=== PATIENT | female | born 1975 | race Caucasian/White ===

== ENCOUNTER 2023-09-06 11:22 | Outpatient (REF) | payer OTHER, SELFPAY ==
[2023-09-06 14:19] LABS: MANUAL DIFF FLAG NO
[2023-09-06 14:23] LABS: Basophils Absolute Auto 0.1 X10*3/uL (0.0-0.2); Basophils Percent Auto 0.9 % (0-2); Eosinophils Absolute Auto 0.4 X10*3/uL (0.0-0.4); Eosinophils Percent Auto 5.8 % (0-4); Hematocrit 41.2 % (37.0-47.0); Hemoglobin 14.1 g/dl (12.0-16.0); Imm Gran Abs Auto 0.03 X10*3/uL (0.00-0.03); Imm Gran Pct Auto 0.5 % (0.0-0.4); Lymphocytes Percent Auto 31.9 % (20-40); Mean Corpuscular HGB Conc 34.2 g/dl (31.0-35.0); Mean Corpuscular Hemoglobin 34.5 pg (27.0-33.0); Mean Corpuscular Volume 100.7 fL (80.0-98.0); Mean Platelet Volume 10.9 fL (9.4-12.3); Monocytes Absolute Auto 0.9 X10*3/uL (0.1-1.2); Monocytes Percent Auto 14.4 % (2-11); Neutrophils Percent Auto 46.5 % (45-73); Platelet Count 207 X10*3/uL (160-400); Red Blood Count 4.09 X10*6/uL (4.20-5.50); Red Cell Distribution Width 13.4 % (11.0-16.0); White Blood Count 6.4 X10*3/uL (4.8-10.8)
[2023-09-06 15:20] LABS: Alanine Aminotransferase 194 U/L (0-31); Albumin Level 4.7 g/dL (3.5-5.0); Alkaline Phosphatase 92 U/L (39-117); Anion Gap 17 (12-20); Aspartate Amino Transferase 212 U/L (5-31); Bilirubin Direct 0.2 mg/dL (0.0-0.5); Bilirubin Total 0.4 mg/dL (0.0-1.0); Blood Urea Nitrogen 8 mg/dL (9-16); Carbon Dioxide 23 mmol/L (22-29); Chloride 104 mmol/L (96-108); Cholesterol 210 mg/dL (<200); Estimated Glomerular Filt Rate > 60; Glucose Random 60 mg/dL (60-115); HDL Cholesterol 109 mg/dL (>40); LDL Cholesterol Calculated 87 mg/dL (<100); Potassium 3.8 mmol/L (3.3-5.1); Sodium 140 mmol/L (135-145); Total Protein 7.8 g/dL (6.5-8.0); Triglycerides 71 mg/dL (<150)
== END 2023-09-06 11:23 | disposition home or self-care (01) ==
LOC: HO.CHCLDS 11:22
PROVIDERS: Visit Provider Student in an Organized Health Care Education/Training Program
DX: F14.10 Cocaine abuse, uncomplicated (principal); F10.10 Alcohol abuse, uncomplicated
CPT/HCPCS: 36415; 80048; 80061; 80076; 85025

== ENCOUNTER 2023-11-28 13:47 | Outpatient (AMB) | payer OTHER, SELFPAY ==
--- NOTE | 2023-11-28 13:48 | MHC.OFFVIS ---
Vital Signs 11/28/23 13:56 Height 5 ft 2 in Weight 152 lb BMI 27.8 Pulse 75 Pulse Source Pulse Oximeter Pulse Oximetry (%) 95 Intake Visit Reasons: Ref.SRIRAMC,Chronic Hep-C. Allergies naproxen [From Naprosyn] Allergy (Unknown, Verified 11/28/23 13:57) SWELLING ALL OVER HPI HPI Ref.JERROD,Chronic Hep-C.: Details: He has Hepatitis C reported. He is interested in treatment. [facility] Medical History Hepatitis C Review of Systems Const All systems reviewed & are unremarkable except as noted in HPI and below Physical Exam Vital Signs: Last Vital Signs Pulse 75 11/28/23 13:56 Pulse Ox 95 11/28/23 13:56 BMI result Body Mass Index 27.8 Const General: cooperative Orientation/consciousness: patient oriented x3 HEENT Head: Yes normal to inspection Mouth: Normal oral and palatal mucosa present Eyes General: appearance normal, both eyes and all related structures Pupils: Equal, round and reactive pupils present Resp Effort & Inspection: normal respiratory effort Cardio Rate: regular rate Rhythm: regular rhythm GI Palpation (GI): Soft to palpation and nontender General: Yes no CVA tenderness Back/Spine/Pelvis Back: no CVA tenderness Skin General skin exam: no rashes or lesions noted Neuro General: patient oriented x3 Cranial nerves: Yes CN's II-XII intact bilaterally and Yes Equal, round and reactive pupils present Extrem General: Yes normal to inspection Psych Appearance: grossly normal Assessment & Plan Assessment & Plan (1) Hepatitis C: Comment: He is interested in treatment. Code(s): B19.20 - Unspecified viral hepatitis C without hepatic coma Category: Medical Plan: Would check viral load Treat Hepatitis C. Orders: Orders Complete Blood Count Auto Diff 11/28/23 B19.20 - Unspecified viral hepatitis C without hepatic coma Hepatitis C Antibody 11/28/23 B19.20 - Unspecified viral hepatitis C without hepatic coma Hepatitis B Surface Antigen 11/28/23 B19.20 - Unspecified viral hepatitis C without hepatic coma Hepatitis A IgG 11/28/23 B19.20 - Unspecified viral hepatitis C without hepatic coma Basic Metabolic Panel 11/28/23 B19.20 - Unspecified viral hepatitis C without hepatic coma Liver Fibrosis Pnl 11/28/23 B19.20 - Unspecified viral hepatitis C without hepatic coma Liver Panel 11/28/23 B19.20 - Unspecified viral hepatitis C without hepatic coma Hepatitis B Core Antibody 11/28/23 B19.20 - Unspecified viral hepatitis C without hepatic coma Hepatitis B Surface Antibody 11/28/23 B19.20 - Unspecified viral hepatitis C without hepatic coma Prothrombin Time INR 11/28/23 B19.20 - Unspecified viral hepatitis C without hepatic coma HIV Ab/Ag 11/28/23 B19.20 - Unspecified viral hepatitis C without hepatic coma Hepatitis C Viral Load 11/28/23 B19.20 - Unspecified viral hepatitis C without hepatic coma Coding Level of Care Code New Pt Level 3 (86457) Diagnoses Hepatitis C B19.20
[2023-11-28 13:56] VITALS: PULSE 75; O2SAT 95; BMI 27.8
== END 2023-11-28 14:38 | disposition home or self-care (01) ==
PROVIDERS: PCP Student in an Organized Health Care Education/Training Program; Visit Provider Internal Medicine
DX: B19.20 Unspecified viral hepatitis C without hepatic coma (principal)
CPT/HCPCS: 99203

== ENCOUNTER 2023-11-28 13:47 | Outpatient (REF) | payer OTHER, SELFPAY ==
[2023-11-28 14:55] LABS: MANUAL DIFF FLAG NO
[2023-11-28 15:23] LABS: Basophils Absolute Auto 0.1 X10*3/uL (0.0-0.2); Basophils Percent Auto 1.1 % (0-2); Eosinophils Absolute Auto 0.4 X10*3/uL (0.0-0.4); Eosinophils Percent Auto 7.1 % (0-4); Hematocrit 41.1 % (37.0-47.0); Hemoglobin 13.6 g/dl (12.0-16.0); Imm Gran Abs Auto 0.03 X10*3/uL (0.00-0.03); Imm Gran Pct Auto 0.5 % (0.0-0.4); Lymphocytes Absolute Auto 1.8 X10*3/uL (1.2-4.9); Lymphocytes Percent Auto 33.5 % (20-40); Mean Corpuscular HGB Conc 33.1 g/dl (31.0-35.0); Mean Corpuscular Hemoglobin 34.2 pg (27.0-33.0); Mean Corpuscular Volume 103.3 fL (80.0-98.0); Monocytes Absolute Auto 0.6 X10*3/uL (0.1-1.2); Monocytes Percent Auto 10.6 % (2-11); Neutrophils Absolute Auto 2.6 x10*3/uL (2.0-8.3); Neutrophils Percent Auto 47.2 % (45-73); Red Blood Count 3.98 X10*6/uL (4.20-5.50); Red Cell Distribution Width 13.6 % (11.0-16.0); White Blood Count 5.5 X10*3/uL (4.8-10.8)
[2023-11-28 15:29] LABS: INTERNATIONAL NORM RATIO 0.9 (0.9-1.1); Prothrombin Time 11.1 SEC (11.1-13.3)
[2023-11-28 15:49] LABS: Mean Platelet Volume 10.7 fL (9.4-12.3); Platelet Count 140 X10*3/uL (160-400)
[2023-11-28 15:59] LABS: Alanine Aminotransferase 183 U/L (0-31); Albumin Level 4.4 g/dL (3.5-5.0); Alkaline Phosphatase 82 U/L (39-117); Anion Gap 13 (12-20); Aspartate Amino Transferase 206 U/L (5-31); Bilirubin Direct 0.2 mg/dL (0.0-0.5); Bilirubin Total 0.4 mg/dL (0.0-1.0); Blood Urea Nitrogen 7 mg/dL (9-16); Calcium 9.1 mg/dL (8.4-10.2); Carbon Dioxide 26 mmol/L (22-29); Chloride 103 mmol/L (96-108); Estimated Glomerular Filt Rate > 60; Glucose Random 66 mg/dL (60-115); Potassium 4.1 mmol/L (3.3-5.1); Sodium 138 mmol/L (135-145); Total Protein 7.4 g/dL (6.5-8.0)
[2023-11-29 04:08] LABS: Hepatitis A Antibody IgG Nonreactive (Nonreactive); ~Hepatitis A Antibody IgG 0.29 S/CO (0.00-0.99)
[2023-11-29 04:13] LABS: HBS Num1 12.54 mIU/mL (0-7.99); HBc Num1 0.04 S/CO (0.00-0.79); HIV AB/AG Nonreactive (Nonreactive); HIV Num 1 0.05 S/CO (0.00-0.99); Hepatitis B Core Antibody Nonreactive (Nonreactive); Hepatitis B Surface Antigen Negative (Negative); ~HepC Num1 16.77 S/CO (0.00-0.79); ~Hepatitis B Surface Antibody REACTIVE (Nonreactive); ~Hepatitis C Antibody Reactive (Nonreactive)
[2023-11-30 14:28] LABS: HCV Log PCR 6.42 Log IU/mL (NOT DETECTED); HepC Viral Load 2630000 IU/mL (NOT DETECTED)
[2023-12-15 19:24] LABS: FIB-ALT 145 U/L (6-29); FIB-Alpha-2-Macroglobulin 130 mg/dL (106-279); FIB-Apolipoprotein A1 250 mg/dL (101-198); FIB-GGT 243 U/L (3-55); FIB-Haptoglobin 132 mg/dL (43-212); FIB-Total Bilirubin 0.3 mg/dL (0.2-1.2); Liver Fibrosis Score 0.04; Liver Fibrosis Stage F0; Nec Inflam Act Grade A3; Nec Inflam Act Score 0.62
== END 2023-11-28 13:48 | disposition home or self-care (01) ==
LOC: HO.LAB 13:47
PROVIDERS: PCP Student in an Organized Health Care Education/Training Program; Visit Provider Internal Medicine
DX: B18.2 Chronic viral hepatitis C (principal)
CPT/HCPCS: 36415; 80048; 80076; 81596; 85025; 85610; 86704; 86706; 86708; 86803; 87340; 87389; 87522; 99202

== ENCOUNTER 2024-05-19 14:40 | Outpatient (REF) | payer OTHER, SELFPAY ==
[2024-05-19 18:31] LABS: MANUAL DIFF FLAG NO
[2024-05-19 18:39] LABS: Basophils Absolute Auto 0.1 X10*3/uL (0.0-0.2); Eosinophils Absolute Auto 0.2 X10*3/uL (0.0-0.4); Eosinophils Percent Auto 2.9 % (0-4); Hematocrit 41.1 % (37.0-47.0); Hemoglobin 13.9 g/dl (12.0-16.0); Imm Gran Abs Auto 0.06 X10*3/uL (0.00-0.03); Imm Gran Pct Auto 0.7 % (0.0-0.4); Lymphocytes Absolute Auto 1.6 X10*3/uL (1.2-4.9); Lymphocytes Percent Auto 19.5 % (20-40); Mean Corpuscular HGB Conc 33.8 g/dl (31.0-35.0); Mean Corpuscular Hemoglobin 34.8 pg (27.0-33.0); Mean Platelet Volume 10.8 fL (9.4-12.3); Monocytes Percent Auto 11.7 % (2-11); Neutrophils Absolute Auto 5.3 x10*3/uL (2.0-8.3); Neutrophils Percent Auto 64.2 % (45-73); Platelet Count 177 X10*3/uL (160-400); Red Blood Count 3.99 X10*6/uL (4.20-5.50); Red Cell Distribution Width 12.7 % (11.0-16.0); White Blood Count 8.3 X10*3/uL (4.8-10.8)
[2024-05-19 18:41] LABS: INTERNATIONAL NORM RATIO 0.8 (0.9-1.1); Prothrombin Time 9.6 SEC (10.9-12.4)
[2024-05-19 18:50] LABS: Alanine Aminotransferase 168 U/L (0-31); Albumin Level 4.4 g/dL (3.5-5.0); Alkaline Phosphatase 80 U/L (39-117); Aspartate Amino Transferase 208 U/L (5-31); Bilirubin Direct < 0.2 mg/dL (0.0-0.5); Bilirubin Total 0.2 mg/dL (0.0-1.0); Estimated Glomerular Filt Rate > 60; Total Protein 7.3 g/dL (6.5-8.0)
[2024-05-20 08:15] LABS: HIV AB/AG Nonreactive (Nonreactive); HIV Num 1 0.06 S/CO (0.00-0.99)
[2024-05-20 15:38] LABS: HCV Log PCR 6.77 Log IU/mL (NOT DETECTED); HepC Viral Load 5870000 IU/mL (NOT DETECTED)
[2024-05-27 16:44] LABS: Hepatitis C Genotype 3
== END 2024-05-19 14:41 | disposition home or self-care (01) ==
LOC: HO.CHCLDS 14:40
PROVIDERS: Visit Provider Student in an Organized Health Care Education/Training Program
DX: B18.2 Chronic viral hepatitis C (principal)
CPT/HCPCS: 36415; 80076; 82565; 85025; 85610; 87389; 87522; 87902

== ENCOUNTER 2024-11-20 11:41 | Outpatient (REF) | payer OTHER, SELFPAY ==
--- OUTSIDE RECORDS SUMMARY | 2024-11-20 11:57 | XMS_ITS | Encounter Summary ---
Author Organization [employer] Address [address] [place] [address] 7 [place] [address] Care Team Providers Care Hospice Clinical Marketer Name Role Phone Terrie Humphries MD Primary Care Provider [phone] Reason for Visit * Reason Comments Med Refill Encounter Details Date Type Department Care Team ([facility] Contact Info) Description 07/27/2022 Refill [facility] [address] [place] [address] Terrie Humphries MD [address] [place] [address] Social History Tobacco Use Types Packs/Day Years Used Date Smoking Tobacco: Every Day Cigarettes 0.5 30 Smokeless Tobacco: Never Alcohol Use Standard Drinks/Week Comments Yes 7 (1 standard drink = 0.6 oz pur e alcohol) Comments Unknown Sex and Gender Information Value Date Recorded Sex Assigned at Female 04/24/2022 10:17 AM EDT Legal Sex Female 10:17 AM EDT Gender Identity Female 04/24/2022 10:17 AM EDT Sexual Orientation Bisexual 04/24/2022 10 :17 AM EDT COVID-19 Exposure Response Date Recorded In the last 10 days, have yo u been in contact with someone who was confirmed or suspected to have Coronavirus/COVID-19? No / Unsure 07/07/2022 3:36 PM EST documented as of this encounter Plan of Treatment Not on file documented as of this encounter Visit Diagnoses Not on filedocumented in this encounter Care Teams Hospice Clinical Marketer Relationship Specialty Start Date End Date Terrie Humphries MD [address] [place] [address], [place] [address] PCP - General Family Medicine 02/17/20 documented as of this encounter
[2024-11-20 14:41] LABS: Alanine Aminotransferase 30 U/L (0-31); Albumin Level 4.1 g/dL (3.5-5.0); Alkaline Phosphatase 86 U/L (39-117); Anion Gap 11 (12-20); Aspartate Amino Transferase 51 U/L (5-31); Bilirubin Direct 0.2 mg/dL (0.0-0.5); Bilirubin Total 0.4 mg/dL (0.0-1.0); Blood Urea Nitrogen 9 mg/dL (9-16); Calcium 9.2 mg/dL (8.4-10.2); Carbon Dioxide 29 mmol/L (22-29); Chloride 102 mmol/L (96-108); Cholesterol 201 mg/dL (<200); Estimated Glomerular Filt Rate > 60; Glucose Random 98 mg/dL (60-115); HDL Cholesterol 94 mg/dL (>40); LDL Cholesterol Calculated 91 mg/dL (<100); Potassium 4.2 mmol/L (3.3-5.1); Sodium 138 mmol/L (135-145); Total Protein 6.7 g/dL (6.5-8.0); Triglycerides 81 mg/dL (<150)
== END 2024-11-20 11:42 | disposition home or self-care (01) ==
LOC: HO.CHCLDS 11:41
PROVIDERS: Visit Provider Student in an Organized Health Care Education/Training Program
DX: F10.10 Alcohol abuse, uncomplicated (principal)
CPT/HCPCS: 36415; 80048; 80061; 80076

== ENCOUNTER 2025-02-18 12:13 | Outpatient (AMB) | payer OTHER, SELFPAY ==
--- NOTE | 2025-02-18 12:26 | A.OFFVIS_ITS ---
Vital Signs 02/18/25 12:29 Height 5 ft 2.5 in Weight 168 lb BMI 30.2 BP 132/83 Blood Pressure Location Lt brachial Position Sitting Pulse 85 Pulse Oximetry (%) 98 Oxygen Delivery Method Room Air Intake Visit Reasons: Colonoscopy Screening Intake Note: Patient new consult for 1st pre Colonoscopy screening. Patient cc: vomit yesterday from no where, she is finishing her HCV treatment, cough a lot of flame, strong smell on her stool with soft stool. Border Inspector Required: No Accompanied by: Self / Same As Patient Allergies naproxen (From Naprosyn) Allergy (Unknown, Verified 02/18/25 12:26) SWELLING ALL OVER Medication List - Last Reconciled 02/18/25 by Shae De Santiago CNP acamprosate 666 mg PO QAM albuterol sulfate 90 mcg/actuation (Ventolin HFA) 2 puffs inhalation Q6H PRN clonidine 1 patch transdermal QWEEK fluticasone propion-salmeterol 115-21 mcg/actuation (Advair HFA) 2 puffs inhalation BID fluvoxamine 100 mg PO BID methadone 110 mg PO DAILY omeprazole 20 mg PO DAILY quetiapine 300 mg PO DAILY HPI HPI Colonoscopy Screening: Details: Patient is a 49-year-old female with PMH of history of hepatitis-C ? Treatment and asthma. Referred by PCP for pre colonoscopy screening Patient presents for pre-colonoscopy screening and has noted gastrointestinal changes over the last few years. Stool consistency shifted approximately three years ago from type 4 (formed) to type 6 (soft or mushy), accompanied by a strong, unusual odor. Recently, stool has intermittently returned to type 4 but remains predominantly type 6. Occasional streaks of blood are noted with wiping, attributed to known hemorrhoids, which have been present for several years. Patient experiences hemorrhoid flares with straining during bowel movements. No significant abdominal pain, nausea, vomiting, or changes in appetite recently, aside from one episode of vomiting yesterday without preceding nausea or relation to food intake. History of severe reflux managed on long-term omeprazole for over 15 years. Patient denies recent fever, weight loss, or difficulty swallowing. Reports bloating, and notes alcohol consumption (six beers daily for 9 years). 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 Past hepatitis C treatment completed a few months ago but awaits follow-up blood work. No personal history of malignancy but significant family history of cancer (type unspecified). Social hx: -Diet: Patient reports eating vegetable-heavy meals; occasional rice at night; rapid food intake. Denies regular junk food consumption. -Alcohol/Tobacco/Drug Use: Daily alcohol intake (6 beers for 9 years); tobacco ~1/3 pack/day; cocaine (1x/week via inhalation); occasional marijuana use. -denies significant cardiopulmonary history -tolerated anesthesia in the past without difficulty. [facility] Medical History (Updated 02/18/25 @ 16:13 by Shae De Santiago CNP) Alcohol dependence Acid reflux Change in stool Colon cancer screening Hepatitis C Surgical History (Updated 02/18/25 @ 12:31 by Zaira Dias) History of surgical amputation of finger of right hand Social History (Updated 02/18/25 @ 12:33 by Zaira Dias) Household Members: Family Alcohol intake: current Alcohol intake frequency: 3 or more drinks per day Alcohol type: beer Patient Tobacco Use Status: Current everyday Tobacco user Tobacco use type: Cigarette Substance Use Type: Crack/Cocaine Review of Systems Const Reports as per HPI ENT Reports as per HPI Card Reports as per HPI Resp Reports as per HPI GI Reports as per HPI Reports as per HPI Physical Exam Vital Signs: Last Vital Signs Pulse 85 02/18/25 12:29 BP 132/83 02/18/25 12:29 Pulse Ox 98 02/18/25 12:29 Oxygen Delivery Method Room Air 02/18/25 12:29 BMI result Body Mass Index 30.2 Const General: healthy appearing, no acute distress and well developed Nutritional Appearance: average body habitus Orientation/consciousness: patient oriented x3 HEENT Head: Yes normal to inspection, Yes normocephalic and Yes atraumatic Face and sinus: Yes normal facial exam Eyes General: appearance normal, both eyes and all related structures Neck Neck: Yes normal visual inspection Resp Effort & Inspection: normal respiratory effort, able to speak in complete sentences, no tracheal deviation and symmetric chest movement Cardio Jugular venous distension: no JVD GI Inspection: Yes normal to inspection, No distended and Yes obesity Palpation (GI): Soft to palpation, not firm, nontender and No hepatosplenomegaly present Auscultation: normal bowel sounds Neuro General: patient oriented x3 Gait exam (Neuro): Normal gait present Psych Appearance: grossly normal Mental Status: mental status grossly normal Speech and movement: Normal speech and movement present Affect: normal affect Attitude: cooperative Thought process: Normal thought process present Thought content: Normal thought content present Insight: Good insight present (Psych) Judgement: Good judgement present (Psych) Assessment & Plan Assessment & Plan (1) Colon cancer screening: Code(s): Z12.11 - Encounter for screening for malignant neoplasm of colon Category: Medical Plan: Due for index screening colonoscopy. Medications: -prescriptions for laxative tablets and MiraLax sent to pharmacy; instructions for Gatorade purchase and clear liquid diet given.. Patient educated on scheduling process, procedure preparation, including avoiding certain foods and ensuring clear liquid intake Advised on necessity for ride post-procedure due to sedation. (2) Change in stool: Code(s): R19.5 - Other fecal abnormalities Category: Medical Plan: Chronic stool inconsistency with odor and intermittent blood, lasting for three years. Additional Testing: Labs for inflammation markers, thyroid function, celiac markers and stool testing. Medication Management: Continue omeprazole, assess need for dose adjustment post-upper endoscopy if findings suggest reflux-related esophageal damage. Lifestyle Recommendations: Increase dietary fiber intake (fruits, vegetables). Minimize with goal of cessation to alcohol use, avoid spicy or fatty foods, acidic beverages, and overeating; eat smaller meals and remain upright after eating. Inform patient to pace food consumption to aid digestion. Follow-Up: Results of labs and stool tests; colonoscopy and upper endoscopy scheduled for colorectal cancer screening and assessment of reflux. (3) Acid reflux: Code(s): K21.9 - Gastro-esophageal reflux disease without esophagitis Category: Medical Qualifiers: Esophagitis presence: esophagitis presence not specified Qualified Code(s): K21.9 - Gastro-esophageal reflux disease without esophagitis Plan: 15+ years of reflux controlled with omeprazole; history of regurgitation episodes. Additional Testing: Upper endoscopy for esophagus and stomach evaluation during colonoscopy. Medication Management: Continue omeprazole (20 mg QD). Lifestyle Recommendations: Avoid triggers like alcohol, acidic, fried, and fatty food. Encourage hydration with water. Rn Clinical Documentation Specialist on dietary practices (clear liquids before procedures). (4) Hepatitis C: Comment: Treatment managed by outside provider Code(s): B19.20 - Unspecified viral hepatitis C without hepatic coma Category: Medical Qualifiers: Hepatic coma status: without hepatic coma Viral hepatitis chronicity: chronic Qualified Code(s): B18.2 - Chronic viral hepatitis C Plan: Completed antiviral therapy, follow-up SVR pending. Additional Testing: Repeat hepatitis C viral load per managing provider; LFTs as part of routine monitoring. Medication Management: None indicated at this time; defer to managing provider. Lifestyle Recommendations: Avoid hepatotoxins (alcohol, NSAIDs); maintain follow-up with hepatitis C provider. Follow-Up: Ensure blood work completed; coordinate with outside provider for ongoing management. (5) Alcohol dependence: Code(s): F10.20 - Alcohol dependence, uncomplicated Category: Medical Qualifiers: Substance use status: uncomplicated Qualified Code(s): F10.20 - Alcohol dependence, uncomplicated Plan: Extended daily use of alcohol (~6 beers/day for ~9 years); patient actively considering reduction. Additional Testing: Evaluate liver function with ultrasound; check for gallstones with history of bloating and vomiting. Medication Management: Reinitiate Campral once dosing confirmed to reduce alcohol cravings. Lifestyle Recommendations: Revisit alcohol cessation counseling. Encourage patient to work toward a trusting relationship with counselor. Follow-Up: Reassess counseling engagement within methadone clinic. Plan Follow-up endoscopy or sooner as needed Time: I spent a total of 50 minutes on the date of encounter which includes: Preparing to see the patient (reviewed previous documentation, test results and medical history) Performing a medically appropriate exam and/or evaluation Ordering medications, tests, and procedures Documenting clinical information in the health record Orders: Orders C Reactive Protein Today R19.5 - Other fecal abnormalities Calprotectin, Fecal Today R19.5 - Other fecal abnormalities Transglutaminase IgA Today R19.5 - Other fecal abnormalities TSH reflex Free T4 Today R19.5 - Other fecal abnormalities US abdomen complete Today B19.20 - Unspecified viral hepatitis C without hepatic coma, K21.9 - Gastro-esophageal reflux disease without esophagitis, R11.10 - Vomiting, unspecified Medications: New bisacodyl (Dulcolax (bisacodyl)) Take four tablets pre colonoscopy instructions 20 mg (4 x 5 mg) PO ONCE 4 tab s 0RF 1 day polyethylene glycol 3350 (Miralax) per colonoscopy prep instructions 238 grams PO ONCE 238 grams 0RF Coding Level of Care Code New Pt New Pt Level 4 (89906) Patient Type New Diagnoses Colon cancer screening Z12.11 Change in stool R19.5 Gastroesophageal reflux disease, unspecified whether esophagitis present K21.9 Esophagitis presence: esophagitis presence not specified Chronic hepatitis C without hepatic coma B18.2 Hepatic coma status: without hepatic coma Viral hepatitis chronicity: chronic Uncomplicated alcohol dependence F10.20 Substance use status: uncomplicated
[2025-02-18 12:29] VITALS: BP 132/83; PULSE 85; O2SAT 98; BMI 30.2
--- OUTSIDE RECORDS SUMMARY | 2025-02-18 12:55 | XMS_ITS | Encounter Summary ---
Author Organization [employer] Address [address] [place] [address] Care Team Providers Care Milk Of Lime Slaker Name Role Phone Terrie Humphries MD Primary Care Provider [phone] Encounter Details Date Type Department Care Team (Late Contact Info) Description 06/15/2022 Orders Only [facility] MED & PEDS [address] [place], [place] [phone] Terrie Humphries MD [address] [place], [place] [phone] Social History Tobacco Use Types Packs/Day Years Used Date Smoking Tobacco: Never Assessed Comments Unknown Sex and Gender Information Value Date Recorded Sex Assigned at Female 04/24/2022 10:17 AM EDT Legal Sex Female 10:17 AM EDT Gender Identity Female 04/24/2022 10:17 AM EDT Sexual Orientation Bisexual 04/24/2022 10 :17 AM EDT documented as of this encounter Plan of Treatment Upcoming Encounters Date Type Department Care Team (Late Contact Info) Description 03/31/2025 11:30 AM EDT Office Visit [facility] [address] [place], [place] [phone] Karen Segura MD [address] [place], [place] [phone] documented as of this encounter Visit Diagnoses Not on filedocumented in this encounter Care Teams Milk Of Lime Slaker Relationship Specialty Start Date End Date Terrie Humphries MD [address] [place] [id number] PCP - General Family Medicine 02/17/20 documented as of this encounter
--- OUTSIDE RECORDS SUMMARY | 2025-02-18 12:55 | XMS_ITS | Encounter Summary ---
Author Organization [facility] Address [address] [place] [address] Encounters * [facility] [place] [facility] Several day history of intermittent chest pain. { reasonForRequest : , patientReports : , denies&quot ;:[], chiefComplaints : Chest Pain , pmh : COPD/Asthma, Severe Persistent Mental Illness (SPMI), Asthma, Cigarette Smoker, Hepatitis C, Substance Use Disorder , allergies : Naproxen , otherAllergies : , painAssessm ent : , visitOutcome : , additionalComments : Patient called by [facility] to confirm information- patient hung up, then phone went to --\n\nThis nurse also called for additional information, no answer- AC\n\nPer requestor:\nHome evaluation of patient with history of asthma, using inhalers. Has intermittent chest pain. Had slight left arm pain the other day. NO chest pain at time of call. } Sent to a call for a pt complaining of chest pain. SC8 arrives on scene, pt is alert and oriented, airway is patent. Pt complains of intermittent left side aching chest pain at rest lasting 3-5 minutes at a time x 2 days. Pt states she has been stressed more than normal. Pt denies ferraro, dizziness, current cp, sob (other than baseline sob due to asthma), n/v/abd pain, fever, or loc. Pt states she has had similar chest pain in past when stressed. Pt's father of a heart attack in his 60's. BP:129/86, P:86, RR:18, SpO2:95% RA, T:98.6; Head: unremarkable; Lung sounds: clear bilaterally; Abdomen: soft, non-tender, no distention; Back: unremarkable; Extremities: unremarkable; Skin: pink, warm, d ry; 12 lead [facility] consulted and pt is advised to follow up with PCP tomorrow. Red flags discussed. Pt has no further questions. ORAL_MEDICATION, EKG, POC_FLU_STREP, COVID_TEST Written by [facility] on 2025-01-20
--- OUTSIDE RECORDS SUMMARY | 2025-02-18 12:55 | XMS_ITS | Encounter Summary ---
Author Organization [employer] Address [address] [place] [address] Care Team Providers Care Rat Exterminator Name Role Phone Terrie Humphries MD Primary Care Provider [phone] Reason for Visit * Reason Onset Date Comments Appointment Request 02/05/2025 Encounter Details Date Type Department Care Team ([facility] Contact Info) Description 02/05/2025 Telephone [facility] MEDICINE [address] [place] [address] Terrie Humphries MD [address] [place], [place] [phone] Appointment Request Social History Tobacco Use Types Packs/Day Years Used Date Smoking Tobacco: Every Day Cigarettes 0.8 30 Smokeless Tobacco: Never Alcohol Use Standard Drinks/Week Comments Yes 7 (1 standard drink = 0.6 oz pur e alcohol) Alcohol Answer Date Recorded How often do you have a drink containing alcohol ? 4 06/12/2023 How many drinks containing a lcohol do you have on a typical day when you are drinking? 4 06/12/2023 How often do you have six or more drinks on one occasion? 4 06/12/2023 Depression Answer Date Recorded Patient Health Questionnaire-9 Score 5 11/20/2024 Patient Health Questionnaire-9 Score 5 11/20/2024 Last PHQ-9: Questionnaire Data Not on file 0 11/20/2024 Housing Stability Answer Date Recorded What is your housing situation today? I have josseline crawford 11/20/[address] you li ve. Do you have problems with any of the following? None of the above 11/20/2024 Food Insecurity Answer Date Recorded Within the past 12 months, y ou worried that your food would run out before you got money to buy more: Never True 11/20/2024 Within the past 12 months,th e food you bought just didn't last and you didn't have enough money to get more: Never True Transportation Answer Date Recorded In the past 12 months, has l ack of transportation kept you from medical appts, meetings, work or from getting things needed for daily living? No 11/20/2024 Utilities Answer Date Recorded In the past 12 months, has t he electric, gas, oil or water company threatened to shut off services in your home? No 11/20/2024 Depression Answer Date Recorded Patient Health Questionnaire-2 Score 2 11/20/2024 Internet Access Answer Date Recorded Internet Access Q1 No 11/20/2024 Internet Access Q2 I do not want or need it 10/24 Comments No Sex and Gender Information Value Date Recorded Sex Assigned at Female 04/24/2022 10:17 AM EDT Legal Sex Female 10:17 AM EDT Gender Identity Female 04/24/2022 10:17 AM EDT Sexual Orientation Bisexual 04/24/2022 10 :17 AM EDT documented as of this encounter Miscellaneous Notes * Telephone Encounter - Caesar Augustin - 02/05/2025 3:53 PM EDT TC from pt requesting to be scheduled fir a mammo gram . Order dated 11/20/24 documented in this encounter Plan of Treatment Upcoming Encounters Date Type Department Care Team (Late st Contact Info) Description 03/31/2025 11:30 AM EDT Office Visit [facility]EDS [address] [place] [address] Karen Segura MD [address] [place] [address] documented as of this encounter Visit Diagnoses Not on filedocumented in this encounter Additional Health Concerns Assessment Noted Time PHQ-9 Depression Total Score: 5 11/21/19 25 1:19 PM EDT documented as of this encounter Care Teams Rat Exterminator Relationship Specialty Start Date End Date Terrie Humphries MD [address] [place] [address] PCP - General Family Medicine 02/17/20 documented as of this encounter
--- OUTSIDE RECORDS SUMMARY | 2025-02-18 12:55 | XMS_ITS | Clinical Summary ---
Author Organization [employer] Address [address] [facility] 7t [place] [address] Care Team Providers Care Party Plan Sales Agent Name Role Phone Terrie Humphries MD Primary Care Provider [phone] Allergies Active Allergy Reactions Criticality Noted Date Comments Naproxen Swelling 11/03/2011 Medications * This document contains information received from the source organization and may not represent a complete record from that organization. triamcinolone (Kenalog) 0.5 % ointment APPLY THIN COAT TO AFFECTED AREA TWICE A DAY 2 Active [facility] Ar[facility]ritis Pain Relief 650 MG ER tablet Take 650 mg by mouth every 8 (eight) hours if needed. 2 Active methadone (Dolophine) 10 MG tablet Take 80 mg by mouth. Active albuterol 108 (90 Base) MCG/ACT inhaler Inhale 2 puffs in the morning, at noon, in the evening, and at bedtime. INHALE 2 PUFF BY INHALATION ROUTE EVERY 4 HOURS NEEDED 18 g 6 4 Active QUEtiapine (SEROquel) 25 MG tablet TAKE 1 TABLET BY MOUTH THREE TIMES A DAY 90 tablet 3 4 Active cloNIDine (Catapres) 0.1 MG tabletIndication s:Hypertension, unspecified type TAKE 1 TABLET BY MOUTH THREE TIMES A DAY 270 tablet 3 4 Active acamprosate (Campral) 333 MG EC tabletIndication s:Alcohol use disorder, severe, dependence (CMS/HCC) Take 2 tablets (666 mg) by mouth 2 times daily. Do not crush, chew, or split. 120 tablet 4 Active fluvoxaMINE (Luvox) 100 MG tablet TAKE 1 TABLET BY MOUTH TWICE A DAY 180 tablet 1 5 Active QUEtiapine (SEROquel) 300 MG tabletIndication s:Depression, unspecified depression type TAKE 1 TABLET BY MOUTH EVERY MORNING 30 tablet 3 5 Active albuterol 108 (90 Base) MCG/ACT inhaler Inhale 2 puffs every 4 (four) hours if needed for wheezing. 18 g 5 11/21/19 26 Active fluticasone-salm eterol (Advair) 115-21 MCG/ACT inhaler Inhale 2 puffs in the morning and at bedtime. Rinse mouth with water after use to reduce aftertaste and incidence of candidiasis. Do not swallow. 12 g 11 5 11/21/19 26 Active albuterol 108 (90 Base) MCG/ACT inhaler INHALE 2 PUFFS IN THE MORNING, AT NOON, IN THE EVENING, AND AT BEDTIME. INHALE 2 PUFF BY INHALATION ROUTE EVERY 4 HOURS NEEDED 18 g 5 5 Active omeprazole (PriLOSEC) [address] capsule TAKE 1 CAPSULE BY MOUTH EVERY DAY BEFORE A MEAL 90 capsule 3 5 Active Active Problems Problem Noted Date Diagnosed Date Hep C w/o coma, chronic 11/20/2024 Tobacco abuse 06/12/2023 Cocaine abuse 06/12/2023 Mild intermittent asthma 03/20/2016 Encounters Date Type Department Care Team Description 02/17/2025 Telephone [facility] [address] [place], [place] [phone] Terrie Humphries MD mammo order 02/09/2025 Telephone [facility] [address] [place], [place] [phone] Terrie Humphries MD 02/05/2025 Telephone [facility] [address] [place], [place] [phone] Liz Cat RN 02/05/2025 Orders Only [facility] [address] [place], [place] [phone] Liz Cat, JUAN CARLOS Hep C w/o coma, chronic (CMS/HCC) (Primary Dx) 02/05/2025 Telephone [facility] [address] [place] [phone] Terrie Humphries MD Appointment Request 01/23/2025 1:20 PM EDT Office Visit [facility] [address] [place] [address] Karen Segura MD Other chest pain (Primary Dx); Epidermoid cyst 01/23/2025 Travel 01/22/[address] [address] Terrie Humphries MD Nurse Triage 01/20/2025 Telephone [facility] [address] [place] [address] Terrie Humphries MD Nurse Triage 01/14/2025 Telephone [facility] [address] [place] [address] Terrie Humphries MD No Show 01/13/2025 Telephone [facility] [address] [place] [address] Terrie Humphries MD Nurse Triage 01/12/[address] [address] Liz Cat, JUAN CARLOS 01/06/2025 Refill [facility] [address] [place] [address] Terrie Humphries MD 11/24/2024 Results Follow-Up [facility] [address] [place] [address] Terrie Humphries MD Basic Metabolic Panel, Lipid Panel, Standard, Hepatic Function Panel 11/20/2024 11:00 AM EDT Office Visit [facility] [address] [place] [address] Terrie Humphries MD Acute bronchitis, unspecified organism (Primary Dx); Mild intermittent asthma without complication; Hep C w/o coma, chronic (CMS/HCC); Encounter for annual wellness visit; Encounter for screening mammogram for breast cancer; Encounter for screening for malignant neoplasm of colon; Alcohol abuse 11/20/2024 Travel from Last 3 Months Immunizations Immunization Administration Dates Next Due Hep B, adult 12/28/2005,08/23/2005,07/21/2005 Influenza injectable quadriv alent IIV4 with preservative 03/20/2016 Pneumococcal Polysaccharide PPSV23 04/10/2017 TD (adult), 2 Lf tetanus tox oid, preservative free, adsorbed 11/23/2004 Tdap 06/12/2023 Social History Tobacco Use Types Packs/Day Years Used Date Smoking Tobacco: Every Day Cigarettes 0.8 30 Smokeless Tobacco: Never Tobacco Cessation:Ready to Q uit: Not Asked; Counseling Given: Not Answered Alcohol Use Standard Drinks/Week Comments Yes 7 [...] Orientation Bisexual 04/24/2022 10 :17 AM EDT Last Filed Vital Signs Vital Sign Reading Time Taken Comments Blood Pressure 129/84 01/23/2025 2:04 PM EDT Pulse 80 01/23/2025 2:04 PM EDT Temperature 36.4 C (97.5 F) 01/23/2025 1:41 PM EDT Respiratory Rate 20 01/23/2025 1:41 PM EDT Oxygen Saturation 95% 01/23/2025 1:41 PM EDT Inhaled Oxygen Concentration - - Weight 76.7 kg (169 lb) 01/23/2025 1:41 PM EDT Height 158.8 cm (5' 2.5 ) 01/23/2025 1:41 PM EDT Body Mass Index 30.42 01/23/2025 1:41 PM EDT Plan of Treatment Upcoming Encounters Date Type Department Care Team (Late st Contact Info) Description 03/31/2025 11:30 AM EDT Office Visit [facility] [address] [place] [address] Kraen Segura MD [address] [place] [address] Health Maintenance Due Date Last Done Comments CT Colonography 1977 Colonoscopy 1977 Colorectal Cancer Screening 1977 FIT DNA/Cologuard 1977 FIT 1977 FOBT 1977 Sigmoidoscopy 1977 Alcohol/Substance Use Screening 1989 Family Planning (PISQ) 1992 Hepatitis A Vaccines (1 of 2 - Risk 2-dose series) 1996 Pap Smear 1998 Cervical Cancer Screening 2007 HPV/Cotest 2007 Mammogram 2017 Pneumococcal Vaccine: Pediatrics (0 to 5 Years) and At-Risk Patients (6 to 49) Years (2 of 2 - PCV) 04/10/2018 04/10/2017 COVID-19 Vaccine (1 - 2023-2 5 season) 2024 Influenza Vaccine (#1) 2025 03/20/2016 Depression Screening 11/20/2025 11/20/2024, 11/20/2024 Disability Screening 11/20/2025 11/20/2024 SDOH Screening 11/20/2025 11/20/2024 Tobacco Screening 11/20/2025 11/20/2024 Zoster Vaccines (1 of 2) 2027 Lipid Panel 11/20/2029 11/20/2024, 09/06/2023, 12/13/2021 DTaP/Tdap/Td Vaccines (2 - T d or Tdap) 06/12/2033 06/12/2023, 11/23/2004 RSV Patients and Patients Aged 60 years or older (1 - 1-dose 75+ series) 2052 Hepatitis B Vaccines Completed 12/28/2005, 08/23/2005, 07/21/2005 HIV Screening Completed 05/19/2024, 11/28/2023, 12/13/2021 HIB Vaccines Aged Out No longer eligi ble based on patient's age to complete this topic HPV Vaccines Aged Out No longer eligi ble based on patient's age to complete this topic IPV Vaccines Aged Out No longer eligi ble based on patient's age to complete this topic Meningococcal B Vaccine Aged Out No l onger eligible based on patient's age to complete this topic Meningococcal Vaccine Aged Out No maddie corby eligible based on patient's age to complete this topic RSV under 20 months Aged Out No longe r eligible based on patient's age to complete this topic Rotavirus Vaccines Aged Out No longer eligible based on patient's age to complete this topic Procedures Procedure Name Priority Date/Time Associated Diagnosis Comments ECG 12-LEAD Routine 01/23/2025 2:13 PM EDT Other chest pain HEPATIC FUNCTION PANEL Routine 11/20/2024 11:45 AM EDT Alcohol abuse LIPID PANEL, STANDARD Routine 11/20/2024 11:45 AM EDT Alcohol abuse BASIC METABOLIC PANEL Routine 11/20/2024 11:45 AM EDT Alcohol abuse HIV 1/2 ANTIGEN/ANTIBODY, FOURTH GENERATION W/RFL Routine 05/19/2024 2:42 PM EST from Last 3 Months or Most Recently Relevant to Health Maintenance Results * ECG 12 lead (01/23/2025 2:13 PM EDT) Karen Egan MD - 01/23/2025 2:13 PM EDT Heart rate 75 bpm. [place] 60 degrees. No Q waves. No sign of left atrial enlargement or right atrial enlargement. No ST elevation or ST depression. Normal EKG. us Karen Segura MD ECG ORDERABLES Final Resul t * (ABNORMAL) Hepatic Function Panel (11/20/2024 11:45 AM EDT) Bilirubin, Total 0.4 0.0 - 1.0 mg/dL [facility] Bilirubin, Direct 0.2 0.0 - 0.5 mg/dL [facility] Aspartate Amino Transferase 51(H) 5 - 31 U/L [facility] Alanine Aminotransferase 30 0 - 31 U/L [facility] Total Protein 6.7 6.5 - 8.0 g/dL [facility] Albumin Level 4.1 3.5 - 5.0 g/dL [facility] Alkaline Phosphatase 86 39 - 117 U/L [facility] Blood Venous blood specimen / Unknown 11/20/2024 11:45 AM EDT 11/20/2024 2:14 PM EDT us Terrie Humphries MD LAB BLOOD ORDERABLES Final Resul t [facility] [address] [place] [phone] * (ABNORMAL) Lipid Panel, Standard (11/20/2024 11:45 AM EDT) Triglycerides 81 <150 mg/dL [facility] Comment:Desirable Triglyceri de: less than 150 mg/dLBorderline High Triglyceride 150-199 mg/dLHigh Triglyceride: 200-499 mg/dLVery High Triglyceride: greater than or equal to 5OO mg/dL Cholesterol 201(H) <200 mg/dL [facility] Comment:Desirable Cholestero l: less than 200 mg/dLBorderline High Cholesterol: 200-239 mg/dLHigh Cholesterol: greater than 239 mg/dL LDL Cholesterol Calculated 91 <100 mg/dL [facility] Comment:Desirable LDL: less than 100 mg/dLNear Optimal/Above Optimal LDL: 110- 129 mg/dLBorderline High LDL: 130-159 mg/dLHigh LDL: 160-189 mg/dLVery High LDL: greater than or equal to 190 mg/dL HDL Cholesterol 94 >40 mg/dL [facility] Comment:Desirable HDL: great er than 40 mg/dL Note: This HDL assay may give artificially low results in patients with liver disease. Blood Venous blood specimen / Unknown 11/20/2024 11:45 AM EDT 11/20/2024 2:14 PM EDT us Terrie Humphries MD LAB BLOOD ORDERABLES Final Resul t [facility] [address] [place] [phone] * (ABNORMAL) Basic Metabolic Panel (11/20/2024 11:45 AM EDT) Sodium 138 135 - 145 mmol/L [facility] Potassium 4.2 3.3 - 5.1 mmol/L [facility] Chloride 102 96 - 108 mmol/L [facility] Carbon Dioxide 29 22 - 29 mmol/L [facility] Anion Gap 11(L) 12 - 20 [facility] Urea Nitrogen (BUN) 9 9 - 16 mg/dL [facility] Creatinine, Serum 0.72 0.5 - 1.4 mg/dL [facility] Estimated Glomerular Filt Rate >60 [facility] Comment:Chronic Kidney Disea se: Estimated GFR < 60 mL/min/[id number] Kidney Disease: Estimated GFR < 15 mL/min/1.73m2 Glucose 98 60 - 115 mg/dL [facility] Calcium 9.2 8.4 - 10.2 mg/dL [facility] Blood Venous blood specimen / Unknown 11/20/2024 11:45 AM EDT 11/20/2024 2:14 PM EDT Terrei Humphries MD LAB BLOOD ORDERABLES Final Resul t Performing Organization Address [facility] Co de Phone Number [facility] [address] [place] [phone] * HIV-1/2 Antigen and Antibodies, Fourth Generation, with Reflexes (05/19/2024 2:42 PM EST) [facility] HIV AB/AG Nonreactive Nonreactive [facility] Comment:HIV-1 p24 Ag and/or HIV-1/HIV-2 Ab not detected.A test result that is nonreactive does not exclude thepossibility of exposure to or infection with HIV-1 and/orHIV-2. Nonreactive results in this assay for individualswith prior exposure to HIV-1 and/or HIV-2 may be due toantigen and antibody levels that are below the limit ofdetection of this assay.The [employer] HIV Ag/Ab Combo assay result andsupplemental assay results should be interpreted inconjunction with the patient's clinical presentation,history and other laboratory results. If the results areinconsistent with clinical evidence, additional testing issuggested to confirm the result. 05/19/2024 2:42 PM EST 05/19/2024 6:27 PM EST Terrie Humphries MD LAB BLOOD ORDERABLES Final Resul t Performing Organization Address [facility] Co de Phone Number [facility] [address] [place] [phone] from Last 3 Months or Most Recently Relevant to Health Maintenance Insurance [place] [id number] [employer] < 65 [place] [id number] [place] [id number] [place] [id number] [place] [id number] Care Teams Party Plan Sales Agent Relationship Specialty Start Date End Date Terrie Humphries MD [address] [place] [phone] PCP - General Family Medicine 02/17/20
--- OUTSIDE RECORDS SUMMARY | 2025-02-18 12:55 | XMS_ITS | Encounter Summary ---
Author Organization [employer] Address [address] [facility] 7 [place] [address] Care Team Providers Care Open Source Developer Name Role Phone Terrie Humphries MD Primary Care Provider [phone] Reason for Visit * Reason Onset Date Comments Nurse Triage 09/11/2023 Encounter Details Date Type Department Care Team ([facility] Contact Info) Description 09/11/2023 Telephone [facility] [address] [place] [address] Terrie Humphries MD [address] [place] [address] Nurse Triage Social History Tobacco Use Types Packs/Day Years [...] more drinks on one occasion? 4 06/12/2023 Housing Stability Answer Date Recorded What is your housing situation today? I have josseline crawford 06/12/[address] you li ve. Do you have problems with any of the following? None of the above 06/12/2023 Food Insecurity Answer Date Recorded Within the past 12 months, y ou worried that your food would run out before you got money to buy more: Sometimes True 2022 Within the past 12 months,th e food you bought just didn't last and you didn't have enough money to get more: Sometimes True 04/12/2023 Transportation Answer Date Recorded In the past 12 months, has l ack of transportation kept you from medical appts, meetings, work or from getting things needed for daily living? No 04/12/2023 Utilities Answer Date Recorded In the past 12 months, has t he electric, gas, oil or water company threatened to shut off services in your home? 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 Pt reports 2 days ago , using a sharp knife, Pt cut , self mutilated, on left lower arm. Pt reports the area is reddened around the edges, green pus present and itchy. Pt believes there is an infection in wound. Pt didn't clean area well at time of wounding. Neg for fever. Pt requests to have provider see wound for possibleantibiotic treatment. Pt last Tdap is 06/12/23. Pt is given apt with Dr. Segura at 400pm today. Insurance is verified as active prior to booking. Pt agrees with disposition and home care reviewed. Protocol Used: Wound Infection Suspected (Adult) Protocol-Based Disposition: See in Office or Video Visit Today Video visit not offered Positive Triage Question: * Patient wants to be seen * All higher-acuity triage questions were negative Care Advice Discussed: * Wound Infection - Treatment With Warm Soaks or Local Heat * Antibiotic Ointment * Pain Medicines * Pain Medicines - Extra Notes and Warnings * Reasons To Call Back - Fever occurs - You become worse * Telephone Encounter - Tor Gar - 09/11/2023 1:50 PM EDT Symptom: Wound Infection - Caller Reports Outcome: Schedule an urgent appointment (within 1 hour) or talk to a nurse or provider soon Reason: Getting worse The caller accepted this outcome Please contact pt @ [phone] documented in this encounter Plan of Treatment Upcoming Encounters Date Type Department Care Team ([facility] st Contact Info) Description 03/31/2025 11:30 AM EDT Office Visit [facility] [address] [place] [address] Karen Segura MD [address] [place] [address] documented as of this encounter Visit Diagnoses Not on filedocumented in this encounter Care Teams Open Source Developer Relationship Specialty Start Date End Date Terrie Humphries MD [address] [place] [phone] PCP - General Family Medicine 02/17/20 documented as of this encounter
--- OUTSIDE RECORDS SUMMARY | 2025-02-18 12:55 | XMS_ITS | Continuity of Care Document ---
Author Name [employer] Address [address] [place] [phone] Organization Unknown Address [address] [place] [address] Medications No known medications Problems No known problems
--- OUTSIDE RECORDS SUMMARY | 2025-02-18 12:55 | XMS_ITS | Encounter Summary ---
Author Organization [employer] Address [address] [place] [address] 7 [place] [address] Care Team Providers Care Photoengraving Sketch Maker Name Role Phone Terrie Humphries MD Primary Care Provider [phone] Reason for Visit * Reason Onset Date Comments VNA orders 06/01/2023 Encounter Details Date Type Department Care Team ([facility] Contact Info) Description 06/01/2023 Telephone [facility] [address] [place] [address] Terrie Humphries MD [address] [place] [address] VNA orders Social History Tobacco Use Types Packs/Day Years Used Date Smoking Tobacco: Every Day Cigarettes 0.5 30 Smokeless Tobacco: Never Alcohol Use Standard Drinks/Week Comments Yes 7 (1 standard drink = 0.6 oz pur e alcohol) Housing Stability Answer Date Recorded What is your housing situation today? I have josseline crawford 04/01/[address] you li ve. Do you have problems with any of the following? Pests such as bugs, ants, or mice 04/01/2023 Food Insecurity Answer Date Recorded Within the [...] to shut off services in your home? Yes 04/01/2023 Comments Unknown Sex and Gender Information Value Date Recorded Sex Assigned at Female 04/24/2022 10:17 AM EDT Legal Sex Female 10:17 AM EDT Gender Identity Female 04/24/2022 10:17 AM EDT Sexual Orientation Bisexual 04/24/2022 10 :17 AM EDT documented as of this encounter Miscellaneous Notes * Telephone Encounter - Becka Arun - 06/01/2023 12:37 PM EST Tc from michelle with [facility] requesting a call in regards to VNA orders. Please contact Michelle at [phone] documented in this encounter Plan of Treatment Upcoming Encounters Date Type Department Care Team (Late st Contact Info) Description 03/31/2025 11:30 AM EDT Office Visit [facility] [address] [place] [address] Karen Segura MD [address] [place] [address] documented as of this encounter Visit Diagnoses Not on filedocumented in this encounter Care Teams Photoengraving Sketch Maker Relationship Specialty Start Date End Date Terrie Humphries MD [address] [place] [phone] PCP - General Family Medicine 02/17/20 documented as of this encounter
--- OUTSIDE RECORDS SUMMARY | 2025-02-18 12:55 | XMS_ITS | Encounter Summary ---
Author Organization [employer] Address [address] [facility] 7t [place] [address] Care Team Providers Care Collections Specialist Name Role Phone Terrie Humphries MD Primary Care Provider [phone] Reason for Visit * Reason Onset Date Comments Appointment Request 05/08/2023 Encounter Details Date Type Department Care Team ([facility] Contact Info) Description 05/08/2023 Telephone [facility] [address] [place] [address] Terrie Humphries MD [address] [place], [place] [phone] Appointment Request Social History Tobacco Use Types [...] encounter Miscellaneous Notes * Telephone Encounter - Vannessa Herrera - 05/08/2023 9:41 AM EST Tc from [facility] requesting PE appt for pt, please call [place] [phone]. documented in this encounter Plan of Treatment Upcoming Encounters Date Type Department Care Team (Late st Contact Info) Description 03/31/2025 11:30 AM EDT Office Visit [facility] [address] [place] [address] Karen Segura MD [address] [place] [address] documented as of this encounter Visit Diagnoses Not on filedocumented in this encounter Care Teams Collections Specialist Relationship Specialty Start Date End Date Terrie Humphries MD [address] [place] [phone] PCP - General Family Medicine 02/17/20 documented as of this encounter
--- OUTSIDE RECORDS SUMMARY | 2025-02-18 12:55 | XMS_ITS | Encounter Summary ---
Author Organization [employer] Address [address] [place] [address] Care Team Providers Care Cinder Pit Crane Operator Name Role Phone Terrie Humphries MD Primary Care Provider [phone] Encounter Details Date Type Department Care Team (Late Contact Info) Description 03/12/2023 Orders Only [facility] [address] [place], [place] [phone] Terrie Humphries MD [address] [place], [place] [phone] Social History Tobacco Use Types Packs/Day Years [...] Description 03/31/2025 11:30 AM EDT Office Visit [facility] MED & PEDS [address] [place], [place] [phone] Karen Segura MD [address] [place], [place] [phone] documented as of this encounter Procedures Procedure Name Priority Date/Time Associated Diagnosis Comments HEPATITIS C ANTIBODY Routine 11/28/2023 2:54 PM EDT LIVER FIBROSIS, FIBROTEST ACTITEST PANEL Routine 11/28/2023 2:54 PM EDT HEPATITIS C VIRAL RNA, QUANTITATIVE, REAL-TIME PCR Routine 11/28/2023 2:54 PM EDT CBC WITH AUTO DIFFERENTIAL Routine 11/28/2023 2:54 PM EDT HEPATITIS A ANTIBODY, TOTAL Routine 11/28/2023 2:54 PM EDT HEPATITIS B SURFACE ANTIGEN, EIA Routine 11/28/2023 2:54 PM EDT HEPATITIS B CORE AB TOTAL Routine 11/28/2023 2:54 PM EDT HIV 1/2 ANTIGEN/ANTIBODY, FOURTH GENERATION W/RFL Routine 11/28/2023 2:54 PM EDT HEPATITIS B SURFACE ANTIBODY, QUALITATIVE Routine 11/28/2023 2:54 PM EDT PROTHROMBIN TIME-INR Routine 11/28/2023 2:54 PM EDT HEPATIC FUNCTION PANEL Routine 11/28/2023 2:54 PM EDT BASIC METABOLIC PANEL Routine 11/28/2023 2:54 PM EDT documented in this encounter Results * (ABNORMAL) Liver Fibrosis (HCV), FibroTest-ActiTest Panel (11/28/2023 2:54 PM EDT) Liver Fibrosis Score 0.04 [facility] Liver Fibrosis Stage F0 [facility] Liver Fibrosis Interpretation SEE NOTE [facility] Comment:no fibrosisFibro Fátima t Score (f) Metavir Score f>=0 and f<=0.21 : F0 (no fibrosis)f>0.21 and f<=0.27 : F0-F1 (no fibrosis)f>0.27 and f<=0.31 : F1 (minimal fibrosis)f>0.31 and f<=0.48 : F1-F2 (minimal fibrosis)f>0.48 and f<=0.58 : F2 (moderate fibrosis)f>0.58 and f<=0.72 : F3 (advanced fibrosis)f>0.72 and f<=0.74 : F3-F4 (advanced fibrosis)f>0.74 and f<=1.00 : F4 (severe fibrosis) Nec Inflam Act Score 0.62 [facility] Nec Inflam Act Grade A3 [facility] Nec Inflam Act Interpretation SEE NOTE [facility] Comment:severe activityActiT est Score (a) Metavir Score a>=0 and a<=0.17 : A0 (no activity)a>0.17 and a<=0.29 : A0-A1 (no activity)a>0.29 and a<=0.36 : A1 (minimal activity)a>0.36 and a<=0.52 : A1-A2 (minimal activity)a>0.52 and a<=0.60 : A2 (significant activity)a>0.60 and a<=0.62 : A2-A3 (significant activity)a>0.62 and a<=1.00 : A3 (severe activity) OJJ-Dzerh-2-Macroglo bulin 130 106 - 279 mg/dL [facility] FIB-Haptoglobin 132 43 - 212 mg/dL [facility] FIB-Apolipoprotein A1 250(A) 101 - 198 mg/dL [facility] FIB-Total Bilirubin 0.3 0.2 - 1.2 mg/dL [facility] FIB-GGT 243(A) 3 - 55 U/L [facility] FIB-ALT 145(A) 6 - 29 U/L [facility] Reference ID [id number] [facility] Footnote SEE NOTE [facility] Comment: The reliability of results is dependent on compliance withthe preanalytical and analytical conditions recommended by[employer]. The tests have to be deferred for: acutehemolysis, acute hepatitis, acute inflammation, extrahepatic cholestasis. The advice of a specialist should besought for interpretation in chronic hemolysis and Gilbert'ssyndrome. The test interpretation is not validated in livertransplant patients. Isolated extreme values of one of thecomponents should lead to caution in interpreting theresults. In case of discordance between a biopsy result gia test, it is recommended to seek the advice of aspecialist. The causes of these discordances could be due toa flaw of the test or to a flaw in the biopsy: i.e. a liverbiopsy has a 33% variability rate for one fibrosis stage.FibroTest is interpretable for chronic hepatitis B and C,alcoholic and non alcoholic steatosis. ActiTest isinterpretable for chronic hepatitis B and C.The performance characteristics have been determined by[facility]. Ithas not been cleared or approved by the U.S. Food and DrugAdministration. Performance characteristics refer to theanalytical performance of the test.[employer], [employer], the associated logo, [employer] and all associated [employer] are theregistered trademarks of [employer]. All third partymarks - (R) and (TM) - are the property of their respectiveowners. (C) [id number] [employer]. Allrights reserved.THIS TEST WAS PERFORMED AT:[employer] [id number] [place] [id number] MALDONADO MD,PHD,RC 11/28/2023 2:54 PM EDT 11/28/2023 2:54 PM EDT us Generic External Data Provider LAB BLOOD ORDERAB LES Final Result [facility] [address] [place] [address] [phone] * (ABNORMAL) Hepatitis C Viral RNA, Quantitative, Real-Time PCR (11/28/2023 2:54 PM EDT) Hepatitis C Viral Load [id number](A ) NOT DETECTED IU/mL [facility] HCV Log PCR 6.42(A) NOT DETECTED Log IU/mL [facility] Comment:For additional infor matravi on this test, go to:http://education.GoSave/faq/NQU94i4(This link is being provided for informational/educational purposes only.)THIS TEST WAS PERFORMED AT:[employer] [place] [id number] CARTER MD 11/28/2023 2:54 PM EDT 11/28/2023 2:54 PM EDT Generic External Data Provider LAB BLOOD ORDERAB LES Final Result Performing Organization Address City/[facility]/ZIP Co de Phone Number [facility] [address] [place] [phone] * Hepatitis B surface antigen, EIA (11/28/2023 2:54 PM EDT) Pathologist [facility] Hepatitis B Surface Ag Negative Negative [facility] 11/28/2023 2:54 PM EDT 11/28/2023 2:54 PM EDT Generic External Data Provider LAB BLOOD ORDERAB LES Final Result Performing Organization Address [facility] Co de Phone Number [facility] [address] [place] [phone] * HIV-1/2 Antigen and Antibodies, Fourth Generation, with Reflexes (11/28/2023 2:54 PM EDT) HIV AB/AG Nonreactive Nonreactive [facility] Comment:HIV-1 p24 Ag and/or HIV-1/HIV-2 Ab not detected.A test result that is nonreactive does not exclude thepossibility of exposure to or infection with HIV-1 and/orHIV-2. Nonreactive results in this assay for individualswith prior exposure to HIV-1 and/or HIV-2 may be due toantigen and antibody levels that are below the limit ofdetection of this assay.The [employer] HIV Ag/Ab Combo assay result andsupplemental assay results should be interpreted inconjunction with the patient's clinical presentation,history and other laboratory results. If the results areinconsistent with clinical evidence, additional testing issuggested to confirm the result. 11/28/2023 2:54 PM EDT 11/28/2023 2:54 PM EDT Generic External Data Provider LAB BLOOD ORDERAB LES Final Result Performing Organization Address [facility] Co de Phone Number [facility] [address] [place] [phone] * (ABNORMAL) Hepatitis C Ab (11/28/2023 2:54 PM EDT) [facility] Hepatitis C Antibody Reactive( A) Nonreactive [facility] Comment:Presumptive evidence of antibodies to HCV. 11/28/2023 2:54 PM EDT 11/28/2023 2:54 PM EDT Generic External Data Provider LAB BLOOD ORDERAB LES Final Result Performing Organization Address [facility] [address] [place] [phone] * Hepatitis B Core Antibody, Total (11/28/2023 2:54 PM EDT) [facility] Hepatitis B Core Antibody Nonreactive Nonreactive [facility] 11/28/2023 2:54 PM EDT 11/28/2023 2:54 PM EDT Generic External Data Provider LAB BLOOD ORDERAB LES Final Result Performing Organization Address [facility] de Phone Number [facility] [address] [place] [phone] * Hepatitis B Surface Antibody, Qualitative (11/28/2023 2:54 PM EDT) Pathologist [facility] ~Hepatitis B Surface Antibody REACTIVE Nonreactive [facility] Comment:REACTIVE: > 11.99 mI U/mL 11/28/2023 2:54 PM EDT 11/28/2023 2:54 PM EDT us Generic External Data Provider LAB BLOOD ORDERAB LES Final Result Performing Organization Address City/[facility]/ZIP Co de Phone Number [facility] [address] [place] [phone] [phone] * Hepatitis A Antibody, Total (11/28/2023 2:54 PM EDT) Hepatitis A Antibody IgG Nonreactive Nonreactive [facility] 11/28/2023 2:54 PM EDT 11/28/2023 2:54 PM EDT Generic External Data Provider LAB BLOOD ORDERAB LES Final Result Performing Organization Address [facility]/ZIP Co de Phone Number [facility] [address] [place] [address] [phone] * (ABNORMAL) Basic Metabolic Panel (11/28/2023 2:54 PM EDT) Sodium 138 135 - 145 mmol/L [facility] Potassium 4.1 3.3 - 5.1 mmol/L [facility] Chloride 103 96 - 108 mmol/L [facility] Carbon Dioxide 26 22 - 29 mmol/L [facility] Anion Gap 13 12 - 20 [facility] Urea Nitrogen (BUN) 7(L) 9 - 16 mg/dL [facility] Creatinine, Serum 0.65 0.5 - 1.4 mg/dL [facility] Estimated Glomerular Filt Rate >60 [facility] Comment:NOTE: For -Am erican individuals, multiply the result by 1.210.Chronic Kidney Disease: Estimated GFR < 60 mL/min/1.30j6Dywekk Kidney Disease: Estimated GFR < 15 mL/min/1.73m2 Glucose 66 60 - 115 mg/dL [facility] Calcium 9.1 8.4 - 10.2 mg/dL [facility] 11/28/2023 2:54 PM EDT 11/28/2023 2:54 PM EDT us Generic External Data Provider LAB BLOOD ORDERAB LES Final Result Performing Organization Address [facility] Co de Phone Number [facility] [address] [place] [address] [phone] * (ABNORMAL) Hepatic Function Panel (11/28/2023 2:54 PM EDT) Bilirubin, Total 0.4 0.0 - 1.0 mg/dL [facility] Bilirubin, Direct 0.2 0.0 - 0.5 mg/dL [facility] Aspartate Amino Transferase 206(H) 5 - 31 U/L [facility] Alanine Aminotransferase 183(H) 0 - 31 U/L [facility] Total Protein 7.4 6.5 - 8.0 g/dL [facility] Albumin Level 4.4 3.5 - 5.0 g/dL [facility] Alkaline Phosphatase 82 39 - 117 U/L [facility] 11/28/2023 2:54 PM EDT 11/28/2023 2:54 PM EDT Generic External Data Provider LAB BLOOD ORDERAB LES Final Result Performing Organization Address [facility] Co de Phone Number [facility] [address] [place] [phone] * Prothrombin Time-INR (11/28/2023 2:54 PM EDT) Prothrombin Time 11.1 11.1 - 13.3 SEC [facility] INTERNATIONAL NORM RATIO 0.9 0.9 - 1.1 [facility] Comment:INTERNATIONAL NORMAL IZED RATIO (INR) REFERENCE RANGES Reference RangeFor patients not on anticoagulant therapy: 0.9 - 1.1INR ranges for oral anticoagulanttherapy:For prevention and treatment of venous thrombosis and pulmonary embolism: 2.0 - 3.0For acute myocardial infarction with aspirin therapy: 2.0 - 3.0For acute myocardial infarction without aspirin therapy: 3.0 - 4.0For patients with mechanical prosthetic heart valves: 2.5 - 3.5 11/28/2023 2:54 PM EDT 11/28/2023 2:54 PM EDT us Generic External Data Provider LAB BLOOD ORDERAB LES Final Result [facility] [address] [place] [phone] * (ABNORMAL) CBC auto differential (11/28/2023 2:54 PM EDT) White Blood Count 5.5 4.8 - 10.8 X10*3/uL [facility] Red Blood Count 3.98(L) 4.20 - 5.50 X10*6/uL [facility] Hemoglobin 13.6 12.0 - 16.0 g/dl [facility] Hematocrit 41.1 37.0 - 47.0 % [facility] Mean Corpuscular Volume 103.3(H) 80.0 - 98.0 fL [facility] Mean Corpuscular Hemoglobin 34.2(H) 27.0 - 33.0 pg [facility] Mean Corpuscular HGB Conc 33.1 31.0 - 35.0 g/dl [facility] Red Cell Distribution Width 13.6 11.0 - 16.0 % [facility] Platelet Count 140(L) 160 - 400 X10*3/uL [facility] Mean Platelet Volume 10.7 9.4 - 12.3 fL [facility] Neutrophils Percent Auto 47.2 45 - 73 % [facility] Imm Gran Pct Auto 0.5(H) 0.0 - 0.4 % [facility] Lymphocytes Percent Auto 33.5 20 - 40 % [facility] Monocytes Percent Auto 10.6 2 - 11 % [facility] Eosinophils Percent Auto 7.1(H) 0 - 4 % [facility] Basophils Percent Auto 1.1 0 - 2 % [facility] NRBC Pct Auto 0.0 0.0 - 0.2 /100WBC [facility] Neutrophils Absolute Auto 2.6 2.0 - 8.3 x10*3/uL [facility] Imm Gran Abs Auto 0.03 0.00 - 0.03 X10*3/uL [facility] Lymphocytes Absolute Auto 1.8 1.2 - 4.9 X10*3/uL [facility] Monocytes Absolute Auto 0.6 0.1 - 1.2 X10*3/uL [facility] Eosinophils Absolute Auto 0.4 0.0 - 0.4 X10*3/uL [facility] Basophils Absolute Auto 0.1 0.0 - 0.2 X10*3/uL [facility] NRBC Abs Auto 0.000 0.0 - 0.012 X10*3/uL [facility] 11/28/2023 2:54 PM EDT 11/28/2023 2:54 PM EDT us Generic External Data Provider LAB BLOOD ORDERAB LES Final Result [facility] [address] [place] [phone] [phone] documented in this encounter Visit Diagnoses Not on filedocumented in this encounter Care Teams Cinder Pit Crane Operator Relationship Specialty Start Date End Date Terrie Humphries MD [address] [place] [phone] PCP - General Family Medicine 02/17/20 documented as of this encounter
--- OUTSIDE RECORDS SUMMARY | 2025-02-18 12:55 | XMS_ITS | Encounter Summary ---
Author Organization [employer] Address [address] [facility] 7 [place] [address] Care Team Providers Care Facilities Custodian Name Role Phone Terrie Humphries MD Primary Care Provider [phone] Reason for Visit * Reason Onset Date Comments Results 05/12/2024 Encounter Details Date Type Department Care Team ([facility] Contact Info) Description 05/12/2024 Telephone [facility] MED & PEDS [address] [place] [address] Terrie Humphries MD [address] [place] [address] Results Social History Tobacco Use Types Packs/Day Years [...] encounter Miscellaneous Notes * Telephone Encounter - Dorina Alcaraz - 05/12/2024 1:42 PM EST Tc from pt requesting a call back to go over liver levels and hep C results that she has. documented in this encounter Plan of Treatment Upcoming Encounters Date Type Department Care Team (Late st Contact Info) Description 03/31/2025 11:30 AM EDT Office Visit [facility] MED [facility] PEDS [address] [place] [address] Karen Segura MD [address] [place] [address] documented as of this encounter Visit Diagnoses Not on filedocumented in this encounter Care Teams Facilities Custodian Relationship Specialty Start Date End Date Terrie Humphries MD [address] [place] [phone] PCP - General Family Medicine 02/17/20 documented as of this encounter
--- OUTSIDE RECORDS SUMMARY | 2025-02-18 12:55 | XMS_ITS | Encounter Summary ---
Author Organization [employer] Address [address] [place] [address] 7 [place] [address] Care Team Providers Care Nail Assembly Machine Operator Name Role Phone Terrie Humphries MD Primary Care Provider [phone] Reason for Visit * Reason Comments Med Refill Encounter Details Date Type Department Care Team ([facility] Contact Info) Description 07/27/2022 Refill [facility] MED & PEDS [address] [place] [address] Terrie Humphries MD [address] [place] [address] Social History Tobacco Use Types Packs/Day Years [...] Upcoming Encounters Date Type Department Care Team ([facility] Contact Info) Description 03/31/2025 11:30 AM EDT Office Visit [facility] MED & PED[facility] [address] [place] [address] Karen Segura MD [address] [place] [phone] documented as of this encounter Visit Diagnoses Not on filedocumented in this encounter Care Teams Nail Assembly Machine Operator Relationship Specialty Start Date End Date Terrie Humphries MD [address] [place] [phone] PCP - General Family Medicine 02/17/20 documented as of this encounter
--- OUTSIDE RECORDS SUMMARY | 2025-02-18 12:55 | XMS_ITS | Encounter Summary ---
Author Organization [employer] Address [address] [facility] 7t [place] [address] Care Team Providers Care Ager Operator Name Role Phone Terrie Humphries MD Primary Care Provider [phone] Reason for Visit * Reason Onset Date Comments Med Refill 12/24/2023 Encounter Details Date Type Department Care Team ([facility] Contact Info) Description 12/24/2023 Telephone [facility] MED & PEDS [address] [place] [address] Terrie Humphries MD [address] [place] [address] Med Refill Social History Tobacco Use Types Packs/Day Years [...] encounter Miscellaneous Notes * Telephone Encounter - Magy Calderon RN - 12/25/2023 10:06 AM EDT Placed call to pharmacy and was able to get med refilled. Pt will get text notification when rx is ready. * Telephone Encounter - Becka Dias - 12/24/2023 4:13 PM EDT TC from pt requesting medication refill. Pt lost medication during a water leak in home. Pt had picked up a new prescription around the beginning of November. Medications needing refill : cloNIDine (Catapres) 0.1 MG tablet To be sent to: [facility]/pharmacy #[id number] [place] - [address] [place] [address] Any questions, Please contact pt at [phone] documented in this encounter Plan of Treatment Upcoming Encounters Date Type Department Care Team ([facility] st Contact Info) Description 03/31/2025 11:30 AM EDT Office Visit [facility] MED & PEDS [address] [place], [place] [phone] Karen Segura MD [address] [place], [place] [phone] documented as of this encounter Visit Diagnoses Not on filedocumented in this encounter Care Teams Ager Operator Relationship Specialty Start Date End Date Terrie Humphries MD [address] [place] [phone] PCP - General Family Medicine 02/17/20 documented as of this encounter
--- OUTSIDE RECORDS SUMMARY | 2025-02-18 12:55 | XMS_ITS | Encounter Summary ---
Author Organization [employer] Address [address] [place] [address] [place] [address] Care Team Providers Care Property Appraiser Name Role Phone Terrie Humphries MD Primary Care Provider Reason for Visit * Reason Onset Date Comments mammo order 02/17/2025 Encounter Details Date Type Department Care Team ([facility] Contact Info) Description 02/17/2025 Telephone [facility] [address] [place] [address] Terrie Humphries MD [address] [place] [address] [phone] mammo order Social History Tobacco Use Types Packs/Day Years [...] encounter Miscellaneous Notes * Telephone Encounter - Janet Logan - 02/17/2025 2:25 PM EDT Incoming fax from [facility]. Patient states that she has lumps on both breasts. In this case, a diagnostic mammogram and ultrasound would be indicated. Please review and provide an updated order. documented in this encounter Plan of Treatment Upcoming Encounters Date Type Department Care Team (Late st Contact Info) Description 03/31/2025 11:30 AM EDT Office Visit [facility] MED & PEDS [address] [place], [place] [phone] Karen Segura MD [address] [place] [address] documented as of this encounter Visit Diagnoses Not on filedocumented in this encounter Additional Health Concerns Assessment Noted Time PHQ-9 Depression Total Score: 5 11/21/19 25 1:19 PM EDT documented as of this encounter Care Teams Property Appraiser Relationship Specialty Start Date End Date Terrie Humphries MD [address] [place] [address] PCP - General Family Medicine 02/17/20 documented as of this encounter
--- OUTSIDE RECORDS SUMMARY | 2025-02-18 12:55 | XMS_ITS | Encounter Summary ---
Author Organization [employer] Address [address] [facility] 7t [place] [address] Care Team Providers Care Hostess Host Name Role Phone Terrie Humphries MD Primary Care Provider [phone] Reason for Visit * Reason Comments Med Refill Encounter Details Date Type Department Care Team ([facility] Contact Info) Description 07/13/2023 Refill [facility] [address] [place] [address] Erica Logan MD [address] [place] [address] Social History Tobacco Use Types Packs/Day Years [...] your housing situation today? I have josseline ty 06/12/[address] you li [...] Description 03/31/2025 11:30 AM EDT Office Visit [facility] MED & PEDS [address] [place] [address] Karen Segura MD [address] [place] [address] documented as of this encounter Visit Diagnoses Not on filedocumented in this encounter Care Teams Hostess Host Relationship Specialty Start Date End Date Terrie Humphries MD [address] [place] [phone] PCP - General Family Medicine 02/17/20 documented as of this encounter
== END 2025-02-18 13:12 | disposition home or self-care (01) ==
LOC: HO.HGI 12:13
PROVIDERS: PCP Student in an Organized Health Care Education/Training Program; Visit Provider Nurse Practitioner Family
DX: B18.2 Chronic viral hepatitis C (principal); Z12.11 Encounter for screening for malignant neoplasm of colon; R19.5 Other fecal abnormalities; K21.9 Gastro-esophageal reflux disease without esophagitis; F10.20 Alcohol dependence, uncomplicated
CPT/HCPCS: 99204

== ENCOUNTER → 2025-02-18 12:13 | Outpatient (BNVA) | payer OTHER, SELFPAY | PROVIDERS: PCP Student in an Organized Health Care Education/Training Program; Visit Provider Nurse Practitioner Family | DX: Z01.818 Encounter for other preprocedural examination (principal); R19.5 Other fecal abnormalities; K21.9 Gastro-esophageal reflux disease without esophagitis; R11.10 Vomiting, unspecified; B19.20 Unspecified viral hepatitis C without hepatic coma | CPT/HCPCS: 99202 ==

== ENCOUNTER 2025-04-13 13:25 | Outpatient (REF) | payer OTHER, SELFPAY ==
--- NOTE | ~2025-04-13 | MM_ITS ---
EXAMINATION(S): 1. MM DIAGNOSTIC DIGITAL BREAST TOMOSYNTHESIS, BILATERAL 2. Targeted ultrasound of the right breast 3. Targeted ultrasound of the left breast CLINICAL INFORMATION: Bilateral breast lumps. COMPARISON: None. This is a baseline study. TECHNIQUE: Digital breast tomosynthesis is performed in both the mediolateral oblique and craniocaudal views along with computer-aided detection (CAD). Synthesized 2D images are generated from the tomosynthesis. Skin BB markers were placed in each breast, which indicates the location of the palpable concern. FINDINGS: BREAST COMPOSITION: There are scattered areas of fibroglandular density. RIGHT BREAST: -No suspicious mammographic findings adjacent to the skin BB marker placed in the upper outer quadrant posterior depth. -There is a 0.7-0.8 cm round mass in the upper breast approximately 12 o'clock position at 8-12 cm from the nipple (MLO 63/75 and CC 60/77). -No suspicious calcifications or other abnormalities are seen. Targeted ultrasound of the right breast was performed at the following locations: -Palpable concern in the upper outer quadrant as indicated by the patient. No suspicious sonographic findings seen. -Mammographic finding at 12 o'clock position. The survey shows a 0.7 x 0.3 x 0.6 cm hypoechoic superficial oval structure at 12 o'clock position at 8 cm from the nipple. No internal vascularity demonstrated with color Doppler evaluation. Sonographic features are compatible with sebaceous cyst/epidermoid inclusion cyst. LEFT BREAST: No significant masses, suspicious calcifications or other abnormalities are seen. In particular, no suspicious mammographic findings adjacent to the skin BB marker placed in the medial breast at approximately 9 o'clock position. Targeted ultrasound of the left breast was performed at the location of the palpable concern as indicated by the patient. The survey did not reveal suspicious sonographic findings. MM/MM tomosynthesis diagnostic BI IMPRESSION: RIGHT BREAST: Sebaceous cyst at 12 o'clock position. Benign, no evidence of malignancy. No imaging findings to accounts for patient's palpable concern. Clinical follow-up is recommended, independent of imaging findings. Otherwise, normal interval follow-up mammogram is recommended in 12 months. LEFT BREAST: Negative, no mammographic evidence of malignancy. Normal interval follow-up is recommended in 12 months. ASSESSMENT: BI-RADS: Category 2: Benign RECOMMENDATION: 1. Patient should be managed based on the clinical impression. 2. Otherwise, routine annual screening mammography. Results were provided to the patient at time of visit by the technologist. This patient's information was entered into a reminder system with a target due date for their next mammogram. Electronically signed by: Donnie White MD 04/13/2025 03:10 PM EDT
--- OUTSIDE RECORDS SUMMARY | 2025-04-13 16:31 | XMS_ITS | Encounter Summary ---
Author Organization [employer] Address [address] [facility] 7t [place] [address] Care Team Providers Care Pack Master Name Role Phone Terrie Humphries MD Primary Care Provider [phone] Reason for Visit * Reason Comments Med Refill Encounter Details Date Type Department Care Team ([facility] Contact Info) Description 07/13/2023 Refill [facility] [address] [place] [address] Erica Logan MD [address] [place] [address] Social History Tobacco Use Types Packs/Day Years [...] on filedocumented in this encounter Care Teams Pack Master Relationship Specialty Start Date End Date Terrie Humphries MD [address] [place] [phone] PCP - General Family Medicine 02/17/20 documented as of this encounter
--- OUTSIDE RECORDS SUMMARY | 2025-04-13 16:31 | XMS_ITS | Encounter Summary ---
Author Organization [employer] Address [address] [place] [address] 7 [place] [address] Care Team Providers Care Seo Manager Name Role Phone Terrie Humphries MD Primary Care Provider [phone] Encounter Details Date Type Department Care Team ([facility] Contact Info) Description 06/15/2022 Orders Only [facility] MED & PEDS [address] [place], [place] [phone] Terrie Humphries MD [address] [place] [address] Social History Tobacco Use Types Packs/Day Years [...] on filedocumented in this encounter Care Teams Seo Manager Relationship Specialty Start Date End Date Terrie Humphries MD [address] [place] [phone] PCP - General Family Medicine 02/17/20 documented as of this encounter
--- OUTSIDE RECORDS SUMMARY | 2025-04-13 16:31 | XMS_ITS | Clinical Summary ---
Author Organization [employer] Address [address] [facility] 7[address] [place] [address] Care Team Providers Care Superintendent Logging Name Role Phone Terrie Humphries MD Primary Care Provider [phone] Allergies Active Allergy Reactions Criticality Noted Date Comments Naproxen Swelling 11/03/2011 Medications * This document contains information received from the source organization and may not represent a complete record from that organization. triamcinolone (Kenalog) 0.5 % ointment APPLY THIN COAT TO AFFECTED AREA TWICE A DAY 01/07/20 22 Active [facility] Ar[facility]ritis Pain Relief 650 MG ER tablet Take 650 mg by mouth every 8 (eight) hours if needed. 07/08/19 22 Active methadone (Dolophine) 10 MG tablet Take 80 mg by mouth. Active albuterol 108 (90 Base) MCG/ACT inhaler Inhale 2 puffs in the morning, at noon, in the evening, and at bedtime. INHALE 2 PUFF BY INHALATION ROUTE EVERY 4 HOURS NEEDED 18 g 6 07/16/19 24 Active cloNIDine (Catapres) 0.1 MG tabletIndicati ons:Hypertensi on, unspecified type TAKE 1 TABLET BY MOUTH THREE TIMES A DAY 270 tablet 3 05/19/20 24 Active acamprosate (Campral) 333 MG EC tabletIndicati ons:Alcohol use disorder, severe, dependence (CMS/HCC) (HCC) Take 2 tablets (666 mg) by mouth 2 times daily. Do not crush, chew, or split. 120 tablet 06/02/20 24 Active albuterol 108 (90 Base) MCG/ACT inhaler Inhale 2 puffs every 4 (four) hours if needed for wheezing. 18 g 11/21/19 25 026 Active fluticasone-sa lmeterol (Advair) 115-21 MCG/ACT inhaler Inhale 2 puffs in the morning and at bedtime. Rinse mouth with water after use to reduce aftertaste and incidence of candidiasis. Do not swallow. 12 g 11 11/21/19 25 026 Active albuterol 108 (90 Base) MCG/ACT inhaler INHALE 2 PUFFS IN THE MORNING, AT NOON, IN THE EVENING, AND AT BEDTIME. INHALE 2 PUFF BY INHALATION ROUTE EVERY 4 HOURS NEEDED 18 g 5 01/08/20 25 Active omeprazole (PriLOSEC) [address] capsule TAKE 1 CAPSULE BY MOUTH EVERY DAY BEFORE A MEAL 90 capsule 3 01/08/20 25 Active fluvoxaMINE (Luvox) 100 MG tablet TAKE 1 TABLET BY MOUTH TWICE A DAY 180 tablet 1 02/25/20 25 Active QUEtiapine (SEROquel) 300 MG tabletIndicati ons:Depression , unspecified depression type TAKE 1 TABLET BY MOUTH EVERY DAY IN THE MORNING 30 tablet 3 04/06/20 25 Active QUEtiapine (SEROquel) 25 MG tablet TAKE 1 TABLET BY MOUTH THREE TIMES A DAY 90 tablet 3 04/06/20 25 Active QUEtiapine (SEROquel) 25 MG tablet TAKE 1 TABLET BY MOUTH THREE TIMES A DAY 90 tablet 3 05/09/20 24 025 Discontinued(Re order (will not trigger notification to Pharmacy)) QUEtiapine (SEROquel) 300 MG tabletIndicati ons:Depression , unspecified depression type TAKE 1 TABLET BY MOUTH EVERY MORNING 30 tablet 3 11/07/19 25 025 Discontinued Active Problems Problem Noted Date Diagnosed Date Hep C w/o coma, chronic 11/20/2024 Tobacco abuse 06/12/2023 Cocaine abuse 06/12/2023 Mild intermittent asthma 03/20/2016 Encounters Date Type Department Care Team Description 04/13/2025 Orders Only [facility] [address], [place] [phone] Terrie Humphries MD 04/06/2025 Refill [facility] [address] [place] [address] Terrie Humphries MD 04/05/2025 Refill [facility] [address] [place] [address] Terrie Humphries MD Depression, unspecified depression type 04/04/2025 Refill [facility] [address] [place] [phone] Terrie Humphries MD 03/05/2025 Orders Only [facility] [address] [place] [address] Terrie Humphries MD Benign breast lumps (Primary Dx); Multiple benign lumps of breast 02/22/2025 Refill [facility] [address] [place] [address] Terrie Humphries MD 02/19/2025 Orders Only [facility] [address] [place] [address] Terrie Humphries MD Multiple benign lumps of breast (Primary Dx) 02/17/2025 Telephone [facility] [address] [place] [phone] Terrie Humphries MD mammo order 02/09/2025 Telephone [facility] [address] [place] [address] Terrie Humphries MD 02/05/2025 Telephone [facility] [address] [place] [phone] Liz Cat RN 02/05/2025 Orders Only [facility] [address] [place] [phone] Liz Cat, RN Hep C w/o coma, chronic (CMS/HCC) (Primary Dx) 02/05/2025 Telephone [facility] [address] [place] [phone] Terrie Humphries MD Appointment Request 01/23/2025 1:20 PM EDT Office Visit [facility] [address] [place] [address] Karen Segura MD Other chest pain (Primary Dx); Epidermoid cyst 01/23/2025 Travel 01/22/2025 Telephone [facility] [address] [place] [address] Terrie Humphries MD Nurse Triage 01/20/2025 Telephone [facility] [address] [place] [address] Terrie Humphries MD Nurse Triage 01/14/2025 Telephone [facility] [address] [place] [address] Terrie Humphries MD No Show 01/13/2025 Telephone [facility] [address] [place] [address] Terrie Humphries MD Nurse Triage 01/12/2025 Telephone [facility] [address] [place] [address] Liz Cat RN from Last 3 Months Immunizations Immunization Administration [...] 01/23/2025 1:41 PM EDT Plan of Treatment Health Maintenance Due Date Last Done Comments CT Colonography 1975 Colonoscopy 1977 Colorectal Cancer Screening 1977 FIT DNA/Cologuard 1977 FIT 1977 FOBT 1975 Sigmoidoscopy 1977 Alcohol/Substance Use Screening 1989 Family Planning (PISQ) 1992 Hepatitis A Vaccines (1 of 2 - Risk 2-dose series) 1996 Pap Smear 1998 Cervical Cancer Screening 2007 HPV/Cotest 2007 Mammogram 2017 04/13/2025, 04/13/2025 Pneumococcal Vaccine: Pediatrics (0 to 5 Years) and At-Risk Patients (6 to 49) Years (2 of 2 - PCV) 04/10/2018 04/10/2017 COVID-19 Vaccine (1 - 2023-2 5 season) 2025 Influenza Vaccine (#1) 2025 03/20/2016 Depression Screening [...] Procedure Name Priority Date/Time Associated Diagnosis Comments BI US BREAST LIMITED BILATERAL Routine 04/13/2025 2:01 PM EDT BI MAMMOGRAM DIAGNOSTIC TOMOSYNTHESIS BILATERAL Routine 04/13/2025 1:30 PM EDT Multiple benign lumps of breast ECG 12-LEAD Routine 01/23/2025 2:13 PM EDT Other chest pain LIPID PANEL, STANDARD Routine 11/20/2024 11:45 AM EDT Alcohol abuse HIV 1/2 ANTIGEN/ANTIBODY, FOURTH GENERATION W/RFL Routine 05/19/2024 2:42 PM EST from Last 3 Months or Most Recently Relevant to Health Maintenance Results * BI US Breast Limited Bilateral (04/13/2025 2:01 PM EDT) Anatomical Region Laterality Modality Breast Bilateral Ultrasound 04/13/2025 2:01 PM EDT Narrative 04/13/2025 3:13 PM EDT [address] [place] [address] Ultrasound Report Signed Patient: Leeann Kaiser MR#: [id number] 21 : 1975 Acct:[id number] Age/Sex: 49 / F ADM Date: 04/13/25 Loc: HO.MAMMO Attending Dr: Terrie Humphries MD Ordering Physician: Terrie Humphries MD Date of Service: 04/13/25 Procedure(s): US Breast BI Limited Mamm Only Accession Number(s): [id number] cc: Terrie Humphries MD Reason for Exam: MULTIPLE LUMPS BILATERALLY, BASELINE NO PRIOR MAMMOS EXAMINATION(S): 1. MM DIAGNOSTIC DIGITAL BREAST TOMOSYNTHESIS, BILATERAL 2. Targeted ultrasound of the right breast 3. Targeted ultrasound of the left breast CLINICAL INFORMATION: Bilateral breast lumps. COMPARISON: None. This is a baseline study. TECHNIQUE: Digital breast tomosynthesis is performed in both the mediolateral oblique and craniocaudal views along with computer-aided detection (CAD). Synthesized 2D images are generated from the tomosynthesis. Skin BB markers were placed in each breast, which indicates the location of the palpable concern. FINDINGS: BREAST COMPOSITION: There are scattered areas of fibroglandular density. RIGHT BREAST: -No suspicious mammographic findings adjacent to the skin BB marker placed in the upper outer quadrant posterior depth. -There is a 0.7-0.8 cm round mass in the upper breast approximately 12 o'clock position at 8-12 cm from the nipple (MLO 63/75 and CC 60/77). -No suspicious calcifications or other abnormalities are seen. Targeted ultrasound of the right breast was performed at the following locations: -Palpable concern in the upper outer quadrant as indicated by the patient. No suspicious sonographic findings seen. -Mammographic finding at 12 o'clock position. The survey shows a 0.7 x 0.3 x 0.6 cm hypoechoic superficial oval structure at 12 o'clock position at 8 cm from the nipple. No internal vascularity demonstrated with color Doppler evaluation. Sonographic features are compatible with sebaceous cyst/epidermoid inclusion cyst. LEFT BREAST: No significant masses, suspicious calcifications or other abnormalities are seen. In particular, no suspicious mammographic findings adjacent to the skin BB marker placed in the medial breast at approximately 9 o'clock position. Targeted ultrasound of the left breast was performed at the location of the palpable concern as indicated by the patient. The survey did not reveal suspicious sonographic findings. US/US Breast BI Limited Mamm Only IMPRESSION: RIGHT BREAST: Sebaceous cyst at 12 o'clock position. Benign, no evidence of malignancy. No imaging findings to accounts for patient's palpable concern. Clinical follow-up is recommended, independent of imaging findings. Otherwise, normal interval follow-up mammogram is recommended in 12 months. LEFT BREAST: Negative, no mammographic evidence of malignancy. Normal interval follow-up is recommended in 12 months. ASSESSMENT: BI-RADS: Category 2: Benign RECOMMENDATION: 1. Patient should be managed based on the clinical impression. 2. Otherwise, routine annual screening mammography. Results were provided to the patient at time of visit by the technologist. This patient's information was entered into a reminder system with a target due date for their next mammogram. Electronically signed by: Donnie White MD 04/13/2025 03:10 PM EDT Dictated By: Donnie White MD Signed By: <Electronically signed by Donnie White MD in OV> 04/13/25 1510 DD/ 1401 TD/TT: 04/13/25 1417 Line Construction Superintendent: Procedure Note Donotuseinterpreter, Image - 04/13/2025 [facility] [address] [place] [address] Ultrasound Report Signed Patient: Leeann Kaiser LMR#: [id number] 21 : 1975Acct:[id number] Age/Sex: 49 / FADM Date: 04/13/25 Loc: HO.MAMMO Attending Dr: Terrie Humphries MD Ordering Physician: Terrie Humphries MD Date of Service: 04/13/25 Procedure(s): US Breast BI Limited Mamm Only Accession Number(s): [id number] cc: Terrie Humphries MD Reason for Exam: MULTIPLE LUMPS BILATERALLY, BASELINE NO PRIOR MAMMOS EXAMINATION(S): 1. MM DIAGNOSTIC DIGITAL BREAST TOMOSYNTHESIS, BILATERAL 2. Targeted ultrasound of the right breast 3. Targeted ultrasound of the left breast CLINICAL INFORMATION: Bilateral breast lumps. COMPARISON: None. This is a baseline study. TECHNIQUE: Digital breast tomosynthesis is performed in both the mediolateral oblique and craniocaudal views along with computer-aided detection (CAD). Synthesized 2D images are generated from the tomosynthesis. Skin BB markers were placed in each breast, which indicates the location of the palpable concern. FINDINGS: BREAST COMPOSITION: There are scattered areas of fibroglandular density. RIGHT BREAST: -No suspicious mammographic findings adjacent to the skin BB marker placed in the upper outer quadrant posterior depth. -There is a 0.7-0.8 cm round mass in the upper breast approximately 12 o'clock position at 8-12 cm from the nipple (MLO 63/75 and CC 60/77). -No suspicious calcifications or other abnormalities are seen. Targeted ultrasound of the right breast was performed at the following locations: -Palpable concern in the upper outer quadrant as indicated by the patient. No suspicious sonographic findings seen. -Mammographic finding at 12 o'clock position. The survey shows a 0.7 x 0.3 x 0.6 cm hypoechoic superficial oval structure at 12 o'clock position at 8 cm from the nipple. No internal vascularity demonstrated with color Doppler evaluation. Sonographic features are compatible with sebaceous cyst/epidermoid inclusion cyst. LEFT BREAST: No significant masses, suspicious calcifications or other abnormalities are seen. In particular, no suspicious mammographic findings adjacent to the skin BB marker placed in the medial breast at approximately 9 o'clock position. Targeted ultrasound of the left breast was performed at the location of the palpable concern as indicated by the patient. The survey did not reveal suspicious sonographic findings. US/US Breast BI Limited Mamm Only IMPRESSION: RIGHT BREAST: Sebaceous cyst at 12 o'clock position. Benign, no evidence of malignancy. No imaging findings to accounts for patient's palpable concern. Clinical follow-up is recommended, independent of imaging findings. Otherwise, normal interval follow-up mammogram is recommended in 12 months. LEFT BREAST: Negative, no mammographic evidence of malignancy. Normal interval follow-up is recommended in 12 months. ASSESSMENT: BI-RADS: Category 2: Benign RECOMMENDATION: 1. Patient should be managed based on the clinical impression. 2. Otherwise, routine annual screening mammography. Results were provided to the patient at time of visit by the technologist. This patient's information was entered into a reminder system with a target due date for their next mammogram. Electronically signed by: Donnie White MD 04/13/2025 03:10 PM EDT Dictated By: Donnie White MD Signed By: <Electronically signed by Donnie White MD in OV> 04/13/25 1510 DD/ 1401 TD/TT: 04/13/25 1417 Line Construction Superintendent: Terrie Humphries MD [facility] US PROCEDURES Edited Result - Final * BI Mammogram Diagnostic Tomosynthesis Bilateral (04/13/2025 1:30 PM EDT) Anatomical Region Laterality Modality Breast Bilateral Mammography 04/13/2025 1:30 PM EDT Narrative 04/13/2025 3:13 PM EDT [facility] [address] [place] [address] [address]. [place], [place] [address] Mammography Report Signed Patient: Leeann Kaiser MR#: [id number] 21 : 1975 Acct:[id number] Age/Sex: 49 / F ADM Date: 04/13/25 Loc: HO.MAMMO Attending Dr: Terrie Humphries MD Ordering Physician: Terrie Humphries MD Results: 2Benign Date of Service: 04/13/25 Follow Up: 1 Year From Orig ina Mammogram Procedure(s): MM tomosynthesis diagnostic BI Accession Number(s): [id number] cc: Terrie Humphries MD Reason For Exam: MULTIPLE LUMPS BILATERALLY, BASELINE NO PRIOR MAMMOS EXAMINATION(S): 1. MM DIAGNOSTIC DIGITAL BREAST TOMOSYNTHESIS, BILATERAL 2. Targeted ultrasound of the right breast 3. Targeted ultrasound of the left breast CLINICAL INFORMATION: Bilateral breast lumps. COMPARISON: None. This is a baseline study. TECHNIQUE: Digital breast tomosynthesis is performed in both the mediolateral oblique and craniocaudal views along with computer-aided detection (CAD). Synthesized 2D images are generated from the tomosynthesis. Skin BB markers were placed in each breast, which indicates the location of the palpable concern. FINDINGS: BREAST COMPOSITION: There are scattered areas of fibroglandular density. RIGHT BREAST: -No suspicious mammographic findings adjacent to the skin BB marker placed in the upper outer quadrant posterior depth. -There is a 0.7-0.8 cm round mass in the upper breast approximately 12 o'clock position at 8-12 cm from the nipple (MLO 63/75 and CC 60/77). -No suspicious calcifications or other abnormalities are seen. Targeted ultrasound of the right breast was performed at the following locations: -Palpable concern in the upper outer quadrant as indicated by the patient. No suspicious sonographic findings seen. -Mammographic finding at 12 o'clock position. The survey shows a 0.7 x 0.3 x 0.6 cm hypoechoic superficial oval structure at 12 o'clock position at 8 cm from the nipple. No internal vascularity demonstrated with color Doppler evaluation. Sonographic features are compatible with sebaceous cyst/epidermoid inclusion cyst. LEFT BREAST: No significant masses, suspicious calcifications or other abnormalities are seen. In particular, no suspicious mammographic findings adjacent to the skin BB marker placed in the medial breast at approximately 9 o'clock position. Targeted ultrasound of the left breast was performed at the location of the palpable concern as indicated by the patient. The survey did not reveal suspicious sonographic findings. MM/MM tomosynthesis diagnostic BI IMPRESSION: RIGHT BREAST: Sebaceous cyst at 12 o'clock position. Benign, no evidence of malignancy. No imaging findings to accounts for patient's palpable concern. Clinical follow-up is recommended, independent of imaging findings. Otherwise, normal interval follow-up mammogram is recommended in 12 months. LEFT BREAST: Negative, no mammographic evidence of malignancy. Normal interval follow-up is recommended in 12 months. ASSESSMENT: BI-RADS: Category 2: Benign RECOMMENDATION: 1. Patient should be managed based on the clinical impression. 2. Otherwise, routine annual screening mammography. Results were provided to the patient at time of visit by the technologist. This patient's information was entered into a reminder system with a target due date for their next mammogram. Electronically signed by: Donnie White MD 04/13/2025 03:10 PM EDT Dictated By: Donnie White MD Signed By: <Electronically signed by Donnie White MD in OV> 04/13/25 1510 DD/ 1330 TD/TT: 04/13/25 1346 Line Construction Superintendent: Procedure Note Donotuseinterpreter, Image - 04/13/2025 [facility] [address] [place] [address] Mammography Report Signed Patient: Leeann Kaiser LMR#: [id number] 21 : 1975Acct:[id number] Age/Sex: 49 / FADM Date: 04/13/25 Loc: [facility] Attending Dr: Terrie Humphries MD Ordering Physician: Terrie Humphries MDResults: 2Benign Date of Service: 04/13/25Follow Up: 1 Year From Orig inal Mammogram Procedure(s): MM tomosynthesis diagnostic BI Accession Number(s): [id number] cc: Terrie Humphries MD Reason For Exam: MULTIPLE LUMPS BILATERALLY, BASELINE NO PRIOR MAMMOS EXAMINATION(S): 1. MM DIAGNOSTIC DIGITAL BREAST TOMOSYNTHESIS, BILATERAL 2. Targeted ultrasound of the right breast 3. Targeted ultrasound of the left breast CLINICAL INFORMATION: Bilateral breast lumps. COMPARISON: None. This is a baseline study. TECHNIQUE: Digital breast tomosynthesis is performed in both the mediolateral oblique and craniocaudal views along with computer-aided detection (CAD). Synthesized 2D images are generated from the tomosynthesis. Skin BB markers were placed in each breast, which indicates the location of the palpable concern. FINDINGS: BREAST COMPOSITION: There are scattered areas of fibroglandular density. RIGHT BREAST: -No suspicious mammographic findings adjacent to the skin BB marker placed in the upper outer quadrant posterior depth. -There is a 0.7-0.8 cm round mass in the upper breast approximately 12 o'clock position at 8-12 cm from the nipple (MLO 63/75 and CC 60/77). -No suspicious calcifications or other abnormalities are seen. Targeted ultrasound of the right breast was performed at the following locations: -Palpable concern in the upper outer quadrant as indicated by the patient. No suspicious sonographic findings seen. -Mammographic finding at 12 o'clock position. The survey shows a 0.7 x 0.3 x 0.6 cm hypoechoic superficial oval structure at 12 o'clock position at 8 cm from the nipple. No internal vascularity demonstrated with color Doppler evaluation. Sonographic features are compatible with sebaceous cyst/epidermoid inclusion cyst. LEFT BREAST: No significant masses, suspicious calcifications or other abnormalities are seen. In particular, no suspicious mammographic findings adjacent to the skin BB marker placed in the medial breast at approximately 9 o'clock position. Targeted ultrasound of the left breast was performed at the location of the palpable concern as indicated by the patient. The survey did not reveal suspicious sonographic findings. MM/MM tomosynthesis diagnostic BI IMPRESSION: RIGHT BREAST: Sebaceous cyst at 12 o'clock position. Benign, no evidence of malignancy. No imaging findings to accounts for patient's palpable concern. Clinical follow-up is recommended, independent of imaging findings. Otherwise, normal interval follow-up mammogram is recommended in 12 months. LEFT BREAST: Negative, no mammographic evidence of malignancy. Normal interval follow-up is recommended in 12 months. ASSESSMENT: BI-RADS: Category 2: Benign RECOMMENDATION: 1. Patient should be managed based on the clinical impression. 2. Otherwise, routine annual screening mammography. Results were provided to the patient at time of visit by the technologist. This patient's information was entered into a reminder system with a target due date for their next mammogram. Electronically signed by: Donnie White MD 04/13/2025 03:10 PM EDT Dictated By: Donnie White MD Signed By: <Electronically signed by Donnie White MD in OV> 04/13/25 1510 DD/ 1330 TD/TT: 04/13/25 1346 Line Construction Superintendent: Terrie Humphries MD IMG BI PROCEDURES Edited Result - Final * ECG 12 lead (01/23/2025 2:13 PM EDT) Karen Egan MD - 01/23/2025 2:13 PM EDT Heart rate 75 bpm. [place] 60 degrees. No Q waves. No sign of left atrial enlargement or right atrial enlargement. No ST elevation or ST depression. Normal EKG. us Karen Segura MD ECG ORDERABLES Final Resul t * (ABNORMAL) Lipid Panel, Standard (11/20/2024 11:45 AM EDT) Triglycerides 81 <150 mg/dL [facility] Comment:Desirable Triglyceri de: less than 150 mg/dLBorderline High Triglyceride 150-199 mg/dLHigh Triglyceride: 200-499 mg/dLVery High Triglyceride: greater than or equal to 5OO mg/dL Cholesterol 201(H) <200 mg/dL [facility] Comment:Desirable Cholestero l: less than 200 mg/dLBorderline High Cholesterol: 200-239 mg/dLHigh Cholesterol: greater than 239 mg/dL LDL Cholesterol Calculated 91 <100 mg/dL [facility] Comment:Desirable LDL: less than 100 mg/dLNear Optimal/Above Optimal LDL: 110- 129 mg/dLBorderline High LDL: 130-159 mg/dLHigh LDL: 160-189 mg/dLVery High LDL: greater than or equal to 190 mg/dL HDL Cholesterol 94 >40 mg/dL [facility] Comment:Desirable HDL: great er than 40 mg/dL Note: This HDL assay may give artificially low results in patients with liver disease. Blood Venous blood specimen / Unknown 11/20/2024 11:45 AM EDT 11/20/2024 2:14 PM EDT Terrie Humphries MD LAB BLOOD ORDERABLES Final Resul t Performing Organization Address [facility] Co de Phone Number [facility] [address] [place] [phone] * HIV-1/2 Antigen and Antibodies, Fourth Generation, with Reflexes (05/19/2024 2:42 PM EST) HIV AB/AG Nonreactive Nonreactive [facility] Comment:HIV-1 p24 Ag and/or HIV-1/HIV-2 Ab not detected.A test result that is nonreactive does not exclude thepossibility of exposure to or infection with HIV-1 and/orHIV-2. Nonreactive results in this assay for individualswith prior exposure to HIV-1 and/or HIV-2 may be due toantigen and antibody levels that are below the limit ofdetection of this assay.The [employer] HIV Ag/Ab Combo assay result andsupplemental assay results should be interpreted inconjunction with the patient's clinical presentation,history and other laboratory results. If the results areinconsistent with clinical evidence, additional testing issuggested to confirm the result. 05/19/2024 2:42 PM EST 05/19/2024 6:27 PM EST Terrie Humphries MD LAB BLOOD ORDERABLES Final Resul t Performing Organization Address City/[facility] Co de Phone Number [facility] [address] [place] [phone] from Last 3 Months or Most Recently Relevant to Health Maintenance Insurance [place] [id number] [facility] ONE CARE < 67 [place] [id number] Dawn [place] [id number] Dawn [place] [id number] Dawn [place] [id number] Care Teams Superintendent Logging Relationship Specialty Start Date End Date Terrie Humphries MD [address] [place] [phone] PCP - General Family Medicine 02/17/20
--- OUTSIDE RECORDS SUMMARY | 2025-04-13 16:31 | XMS_ITS | Encounter Summary ---
Author Organization [employer] Address 75 [facility] 7t [place] [address] Care Team Providers Care Technical Data Analyst Name Role Phone Terrie Humphries MD Primary Care Provider [phone] Reason for Visit * Reason Comments Med Refill Encounter Details Date Type Department Care Team ([facility] Contact Info) Description 04/06/2025 Refill [facility] MEDICINE [address] [place] [address] Terrie Humphries MD 505 [place] [address] Social History Tobacco Use Types Packs/Day Years [...] documented as of this encounter Care Teams Technical Data Analyst Relationship Specialty Start Date End Date Terrie Humphries MD [address] [place] [phone] PCP - General Family Medicine 02/17/20 documented as of this encounter
--- OUTSIDE RECORDS SUMMARY | 2025-04-13 16:31 | XMS_ITS | Encounter Summary ---
Author Organization [employer] Address 75 [facility] 7t [place] [address] Care Team Providers Care Gardening Supervisor Name Role Phone Terrie Humphries MD Primary Care Provider [phone] Encounter Details Date Type Department Care Team ([facility] Contact Info) Description 04/13/2025 Orders Only [facility] MED & PEDS [address] [place], [place] [phone] Terrie Humphries MD 505 [place] [address] Social History Tobacco Use Types Packs/Day Years [...] on file documented as of this encounter Procedures Procedure Name Priority Date/Time Associated Diagnosis Comments BI US BREAST LIMITED BILATERAL Routine 04/13/2025 2:01 PM EDT documented in this encounter Results * BI US Breast Limited Bilateral (04/13/2025 2:01 PM EDT) Anatomical Region Laterality Modality Breast Bilateral Ultrasound 04/13/2025 2:01 PM EDT Narrative 04/13/2025 3:13 PM EDT [facility] [address] [place] [address] Ultrasound Report Signed Patient: Leeann Kaiser MR#: [id number] [birth year] : 1975 Acct:[id number] Age/Sex: 49 / F ADM Date: 04/13/25 Loc: HO.MAMMO Attending Dr: Terrie Humphries MD Ordering Physician: Terrie Humphries MD Date of Service: 04/13/25 Procedure(s): US Breast BI Limited Mamm Only Accession Number(s): [id number] cc: Terrie Humphries MD Reason for Exam: [...] 04/13/25 1510 DD/ 1401 TD/TT: 04/13/25 1417 Early Childhood Special Educator: Procedure Note Donotuseinterpreter, Image - 04/13/2025 [facility] [address] [place] [address] Ultrasound Report Signed Patient: Leeann Kaiser LMR#: [id number] [birth year] : 1975Acct:[id number] Age/Sex: 49 / FADM Date: 04/13/25 Loc: HO.MAMMO Attending Dr: Terrie Humphries MD Ordering Physician: Terrie Humphries MD Date of Service: 04/13/25 Procedure(s): US Breast BI Limited Mamm Only Accession Number(s): [id number] cc: Terrie Humphries MD Reason for Exam: [...] 04/13/25 1510 DD/ 1401 TD/TT: 04/13/25 1417 Early Childhood Special Educator: us Terrie Humphries MD G PROCEDURES Edited Result - Final documented in this encounter Visit Diagnoses Not on filedocumented in this encounter Additional Health Concerns Assessment Noted Time PHQ-9 Depression Total Score: 5 11/21/19 25 1:19 PM EDT documented as of this encounter Care Teams Gardening Supervisor Relationship Specialty Start Date End Date Terrie Humphries MD [address] [place] [address] PCP - General Family Medicine 02/17/20 documented as of this encounter
--- OUTSIDE RECORDS SUMMARY | 2025-04-13 16:31 | XMS_ITS | Encounter Summary ---
Author Organization [employer] Address 75 [facility] 7t [place] [address] Care Team Providers Care Rn Social Services Name Role Phone Terrie Humphries MD Primary Care Provider [phone] Reason for Visit * Reason Onset Date Comments Appointment Request 05/08/2023 Encounter Details Date Type Department Care Team ([facility] Contact Info) Description 05/08/2023 Telephone [facility] MEDICINE 230 [place] [address] Terrie Humphries MD [address] [place], [place] [phone] Appointment Request Social History Tobacco Use Types [...] - 05/08/2023 9:41 AM EST Tc from [facility] requesting PE appt for pt, please call [place] [phone]. documented in this encounter Plan of Treatment Not on file documented as of this encounter Visit Diagnoses Not on filedocumented in this encounter Care Teams Rn Social Services Relationship Specialty Start Date End Date Terrie Humphries MD [address] [place] [address] PCP - General Family Medicine 02/17/20 documented as of this encounter
--- OUTSIDE RECORDS SUMMARY | 2025-04-13 16:31 | XMS_ITS | Encounter Summary ---
Author Organization [employer] Address [address] [place] [address] 7 [place] [address] Care Team Providers Care Public Health Officer Name Role Phone Terrie Humphries MD Primary Care Provider [phone] Reason for Visit * Reason Comments Med Refill Encounter Details Date Type Department Care Team ([facility] Contact Info) Description 07/27/2022 Refill [facility] MED & PEDS 505 [place] [address] Terrie Humphries MD 505 [place] [address] Social History Tobacco Use Types Packs/Day Years [...] on filedocumented in this encounter Care Teams Public Health Officer Relationship Specialty Start Date End Date Terrie Humphries MD [address] [place] [address], [place] [address] PCP - General Family Medicine 02/17/20 documented as of this encounter
--- OUTSIDE RECORDS SUMMARY | 2025-04-13 16:31 | XMS_ITS | Encounter Summary ---
Author Organization [employer] Address 75 [facility] 7t [place] [address] Care Team Providers Care Director Of Catering Sales Name Role Phone Terrie Humphries MD Primary Care Provider [phone] Reason for Visit * Reason Onset Date Comments Med Refill 12/24/2023 Encounter Details Date Type Department Care Team ([facility] Contact Info) Description 12/24/2023 Telephone [facility] MED & PEDS 505 [place] [address] Terrie Humphries MD [address] [place] [address] Med Refill Social History Tobacco Use Types [...] 0.1 MG tablet To be sent to: [facility]/pharmacy #[id number] - [place] - [address] [place] [address] Any questions, Please contact pt at [phone] documented in this encounter Plan of Treatment Not on file documented as of this encounter Visit Diagnoses Not on filedocumented in this encounter Care Teams Director Of Catering Sales Relationship Specialty Start Date End Date Terrie Humphries MD [address] [place] [phone] PCP - General Family Medicine 02/17/20 documented as of this encounter
--- OUTSIDE RECORDS SUMMARY | 2025-04-13 16:31 | XMS_ITS | Encounter Summary ---
Author Organization [employer] Address 75 [facility] 7t [place] [address] Care Team Providers Care Medical Liaison Name Role Phone Terrie Humphries MD Primary Care Provider [phone] Reason for Visit * Reason Onset Date Comments Appointment Request 02/05/2025 Encounter Details Date Type Department Care Team ([facility] Contact Info) Description 02/05/2025 Telephone [facility] MEDICINE 230 [place] [address] Terrie Humphries MD 505 [place], [place] [phone] Appointment Request Social History Tobacco Use Types [...] documented as of this encounter Care Teams Medical Liaison Relationship Specialty Start Date End Date Terrie Humphries MD [address] [place] [address] PCP - General Family Medicine 02/17/20 documented as of this encounter
--- OUTSIDE RECORDS SUMMARY | 2025-04-13 16:31 | XMS_ITS | Encounter Summary ---
Author Organization [employer] Address 75 [facility] 7 [place] [address] Care Team Providers Care Furniture Arranger Name Role Phone Terrie Humphries MD Primary Care Provider [phone] Reason for Visit * Reason Onset Date Comments Nurse Triage 09/11/2023 Encounter Details Date Type Department Care Team ([facility] Contact Info) Description 09/11/2023 Telephone [facility] CHC MED & PEDS 505 [place] [address] Terrie Humphries MD 505 [place] [address] Nurse Triage Social History Tobacco Use Types [...] accepted this outcome Please contact pt @ [phone] documented in this encounter Plan of Treatment Not on file documented as of this encounter Visit Diagnoses Not on filedocumented in this encounter Care Teams Furniture Arranger Relationship Specialty Start Date End Date Terrie Humphries MD [address] [place] [address] PCP - General Family Medicine 02/17/20 documented as of this encounter
--- OUTSIDE RECORDS SUMMARY | 2025-04-13 16:31 | XMS_ITS | Encounter Summary ---
Author Organization [employer] Address 75 [facility] 7 [place] [address] Care Team Providers Care Coin Machine Collector Name Role Phone Terrie Humphries MD Primary Care Provider [phone] Reason for Visit * Reason Onset Date Comments VNA orders 06/01/2023 Encounter Details Date Type Department Care Team ([facility] Contact Info) Description 06/01/2023 Telephone [facility] CHC MED & PEDS 505 [place] [address] Terrie Humphries MD 505 [place] [address] VNA orders Social History Tobacco Use Types [...] Miscellaneous Notes * Telephone Encounter - Becka Dias - 06/01/2023 12:37 PM EST Tc from michelle with [facility] requesting a call in regards to [facility]NA orders. Please contact Michelle at [phone] documented in this encounter Plan of Treatment Not on file documented as of this encounter Visit Diagnoses Not on filedocumented in this encounter Care Teams Coin Machine Collector Relationship Specialty Start Date End Date Terrie Humphries MD 230 [place] [address] PCP - General Family Medicine 02/17/20 documented as of this encounter
--- OUTSIDE RECORDS SUMMARY | 2025-04-13 16:31 | XMS_ITS | Encounter Summary ---
Author Organization [employer] Address [address] [place] [address] 7t [place] [address] Care Team Providers Care Quickbooks Bookkeeper Name Role Phone Terrie Hmuphries MD Primary Care Provider [phone] Encounter Details Date Type Department Care Team ([facility] st Contact Info) Description 03/12/2023 Orders Only [facility] [address] [place] [address] Terrie Humphries MD [address] [place] [phone] Social History Tobacco Use Types Packs/Day Years [...] 2:54 PM EDT) Liver Fibrosis Score 0.04 [facility] Liver Fibrosis Stage F0 [facility] Liver Fibrosis Interpretation SEE NOTE [facility] Comment:no fibrosisFibro Fátima t Score [...] (severe fibrosis) Nec Inflam Act Score 0.62 [facility] Nec Inflam Act Grade A3 [facility] Nec Inflam Act Interpretation SEE NOTE [facility] Comment:severe activityActiT est Score (a) Metavir Score a>=0 and a<=0.17 : A0 (no activity)a>0.17 and a<=0.29 : A0-A1 (no activity)a>0.29 and a<=0.36 : A1 (minimal activity)a>0.36 and a<=0.52 : A1-A2 (minimal activity)a>0.52 and a<=0.60 : A2 (significant activity)a>0.60 and a<=0.62 : A2-A3 (significant activity)a>0.62 and a<=1.00 : A3 (severe activity) GZU-Sycyo-2-Macroglo bulin 130 106 - 279 mg/dL [facility] FIB-Haptoglobin 132 43 - 212 mg/dL [facility] FIB-Apolipoprotein A1 250(A) 101 - 198 mg/dL [facility] FIB-Total Bilirubin 0.3 0.2 - 1.2 mg/dL [facility] FIB-GGT 243(A) 3 - 55 U/L [facility] FIB-ALT 145(A) 6 - 29 U/L [facility] Reference ID [id number] [facility] Footnote SEE NOTE [facility] Comment: The reliability of results [...] and C.The performance characteristics have been determined by[employer] [facility]. Ithas not been cleared or approved by the U.S. Food and DrugAdministration. Performance characteristics refer to theanalytical performance of the test.[employer], the associated logo, [employer] and all associated [employer] barber are theregistered trademarks of [employer]. All third partymarks - (R) and (TM) - are the property of their respectiveowners. (C) 7052-1175 [employer]. Allrights reserved.THIS TEST WAS PERFORMED AT:[employer] [id number] [place] [address]FNTOUUNA MALDONADO MD,PHD,RC 11/28/2023 2:5 4 PM EDT 11/28/2023 2:54 PM EDT us Generic External Data Provider LAB BLOOD ORDERAB LES Final Result [facility] [address] [place] [address] [phone] * (ABNORMAL) Hepatitis C Viral RNA, Quantitative, Real-Time PCR (11/28/2023 2:54 PM EDT) Hepatitis C Viral Load 6994159(A ) NOT DETECTED IU/mL [facility] HCV Log PCR 6.42(A) NOT DETECTED Log IU/mL [facility] Comment:For additional infor mation on this test, go to:http://education.SkyWire/faq/IJP41l0(This link is being provided for informational/educational purposes only.)THIS TEST WAS PERFORMED AT:[employer] [address] [address]GXLEKJERRELL CARTER MD 11/28/2023 2:54 PM EDT 11/28/2023 2:54 PM EDT Generic External Data Provider LAB BLOOD ORDERAB LES Final Result Performing Organization Address City/[facility]/ZIP Co de Phone Number [facility] [address] [place] [phone] * Hepatitis B surface antigen, EIA (11/28/2023 2:54 PM EDT) Hepatitis B Surface Ag Negative Negative [facility] 11/28/2023 2:54 PM EDT 11/28/2023 2:54 PM EDT Generic External Data Provider LAB BLOOD ORDERAB LES Final Result Performing Organization Address [facility] Co de Phone Number [facility] [address] [place] [phone] * HIV-1/2 Antigen and Antibodies, Fourth Generation, with Reflexes (11/28/2023 2:54 PM EDT) HIV AB/AG Nonreactive Nonreactive [facility] Comment:HIV-1 p24 Ag and/or HIV-1/HIV-2 Ab not detected.A test result that is nonreactive does not exclude thepossibility of exposure to or infection with HIV-1 and/orHIV-2. Nonreactive results in this assay for individualswith prior exposure to HIV-1 and/or HIV-2 may be due toantigen and antibody levels that are below the limit ofdetection of this assay.The [employer] HIV Ag/Ab Combo assay result andsupplemental assay results should be interpreted inconjunction with the patient's clinical presentation,history and other laboratory results. If the results areinconsistent with clinical evidence, additional testing issuggested to confirm the result. 11/28/2023 2:54 PM EDT 11/28/2023 2:54 PM EDT us Generic External Data Provider LAB BLOOD ORDERAB LES Final Result Performing Organization Address [facility] Co de Phone Number [facility] [address] [place] [address] [phone] * (ABNORMAL) Hepatitis C Ab (11/28/2023 2:54 PM EDT) Hepatitis C Antibody Reactive( A) Nonreactive [facility] Comment:Presumptive evidence of antibodies to HCV. 11/28/2023 2:54 PM EDT 11/28/2023 2:54 PM EDT us Generic External Data Provider LAB BLOOD ORDERAB LES Final Result Performing Organization Address [facility] Co de Phone Number [facility] [address] [place] [phone] * Hepatitis B Core Antibody, Total (11/28/2023 2:54 PM EDT) Hepatitis B Core Antibody Nonreactive Nonreactive [facility] 11/28/2023 2:54 PM EDT 11/28/2023 2:54 PM EDT us Generic External Data Provider LAB BLOOD ORDERAB LES Final Result Performing Organization Address [facility] Co de Phone Number [facility] [address] [place] [phone] * Hepatitis B Surface Antibody, Qualitative (11/28/2023 2:54 PM EDT) ~Hepatitis B Surface Antibody REACTIVE Nonreactive [facility] Comment:REACTIVE: > 11.99 mI U/mL 11/28/2023 2:54 PM EDT 11/28/2023 2:54 PM EDT us Generic External Data Provider LAB BLOOD ORDERAB LES Final Result Performing Organization Address [facility]/ZIP Co de Phone Number [facility] [address] [place] [address] [phone] * Hepatitis A Antibody, Total (11/28/2023 2:54 PM EDT) Hepatitis A Antibody IgG Nonreactive Nonreactive [facility] 11/28/2023 2:54 PM EDT 11/28/2023 2:54 PM EDT Generic External Data Provider LAB BLOOD ORDERAB LES Final Result Performing Organization Address [facility] Co de Phone Number [facility] [address] [place] [address] [phone] * (ABNORMAL) Basic Metabolic Panel (11/28/2023 2:54 PM EDT) Pathologist [facility] Sodium 138 135 - 145 mmol/L [facility] Potassium 4.1 3.3 - 5.1 mmol/L [facility] Chloride 103 96 - 108 mmol/L [facility] Carbon Dioxide 26 22 - 29 mmol/L [facility] Anion Gap 13 12 - 20 [facility] Urea Nitrogen (BUN) 7(L) 9 - 16 mg/dL [facility] Creatinine, Serum 0.65 0.5 - 1.4 mg/dL [facility] Estimated Glomerular Filt Rate >60 [facility] Comment:NOTE: For -Am erican individuals, multiply the result by 1.210.Chronic Kidney Disease: Estimated GFR < 60 mL/min/1.85m7Vumnxq Kidney Disease: Estimated GFR < 15 mL/min/1.73m2 Glucose 66 60 - 115 mg/dL [facility] Calcium 9.1 8.4 - 10.2 mg/dL [facility] 11/28/2023 2:54 PM EDT 11/28/2023 2:54 PM EDT us Generic External Data Provider LAB BLOOD ORDERAB LES Final Result Performing Organization Address [facility]/ZIP Co de Phone Number [facility] [address] [place] [address] [phone] * (ABNORMAL) Hepatic Function Panel (11/28/2023 2:54 PM EDT) Bilirubin, Total 0.4 0.0 - 1.0 mg/dL [facility] Bilirubin, Direct 0.2 0.0 - 0.5 mg/dL [facility] Aspartate Amino Transferase 206(H) 5 - 31 U/L [facility] Alanine Aminotransferase 183(H) 0 - 31 U/L [facility] Total Protein 7.4 6.5 - 8.0 g/dL [facility] Albumin Level 4.4 3.5 - 5.0 g/dL [facility] Alkaline Phosphatase 82 39 - 117 U/L [facility] 11/28/2023 2:54 PM EDT 11/28/2023 2:54 PM EDT us Generic External Data Provider LAB BLOOD ORDERAB LES Final Result Performing Organization Address City/State/[facility] Co de Phone Number [facility] [address] [place] [phone] * Prothrombin Time-INR (11/28/2023 2:54 PM EDT) Prothrombin Time 11.1 11.1 - 13.3 SEC [facility] INTERNATIONAL NORM RATIO 0.9 0.9 - 1.1 [facility] Comment:INTERNATIONAL NORMAL IZED RATIO (INR) [...] Provider LAB BLOOD ORDERAB LES Final Result [facility] [address] [place], [place] [phone] * (ABNORMAL) CBC auto differential (11/28/2023 2:54 PM EDT) White Blood Count 5.5 4.8 - 10.8 X10*3/uL [facility] Red Blood Count 3.98(L) 4.20 - 5.50 X10*6/uL [facility] Hemoglobin 13.6 12.0 - 16.0 g/dl [facility] Hematocrit 41.1 37.0 - 47.0 % [facility] Mean Corpuscular Volume 103.3(H) 80.0 - 98.0 fL [facility] Mean Corpuscular Hemoglobin 34.2(H) 27.0 - 33.0 pg [facility] Mean Corpuscular HGB Conc 33.1 31.0 - 35.0 g/dl [facility] Red Cell Distribution Width 13.6 11.0 - 16.0 % [facility] Platelet Count 140(L) 160 - 400 X10*3/uL [facility] Mean Platelet Volume 10.7 9.4 - 12.3 fL [facility] Neutrophils Percent Auto 47.2 45 - 73 % [facility] Imm Gran Pct Auto 0.5(H) 0.0 - 0.4 % [facility] Lymphocytes Percent Auto 33.5 20 - 40 % [facility] Monocytes Percent Auto 10.6 2 - 11 % [facility] Eosinophils Percent Auto 7.1(H) 0 - 4 % [facility] Basophils Percent Auto 1.1 0 - 2 % [facility] NRBC Pct Auto 0.0 0.0 - 0.2 /100WBC [facility] Neutrophils Absolute Auto 2.6 2.0 - 8.3 x10*3/uL [facility] Imm Gran Abs Auto 0.03 0.00 - 0.03 X10*3/uL [facility] Lymphocytes Absolute Auto 1.8 1.2 - 4.9 X10*3/uL [facility] Monocytes Absolute Auto 0.6 0.1 - 1.2 X10*3/uL [facility] Eosinophils Absolute Auto 0.4 0.0 - 0.4 X10*3/uL [facility] Basophils Absolute Auto 0.1 0.0 - 0.2 X10*3/uL [facility] NRBC Abs Auto 0.000 0.0 - 0.012 X10*3/uL [facility] 11/28/2023 2:54 PM EDT 11/28/2023 2:54 PM EDT us Generic External Data Provider LAB BLOOD ORDERAB LES Final Result Performing Organization Address City/State/[facility] Co de Phone Number [facility] [address] [place] [address] [phone] documented in this encounter Visit Diagnoses Not on filedocumented in this encounter Care Teams Quickbooks Bookkeeper Relationship Specialty Start Date End Date Terrie Humphries MD [address] [place] [phone] PCP - General Family Medicine 02/17/20 documented as of this encounter
--- OUTSIDE RECORDS SUMMARY | 2025-04-13 16:32 | XMS_ITS | Encounter Summary ---
Author Organization [employer] Address 75 [facility] 7 [place] [address] Care Team Providers Care Cat Hooker Name Role Phone Terrie Humphries MD Primary Care Provider [phone] Reason for Visit * Reason Onset Date Comments Results 05/12/2024 Encounter Details Date Type Department Care Team ([facility] Contact Info) Description 05/12/2024 Telephone [facility] CHC MED & PEDS [address] [place] [address] Terrie Humphries MD 505 [place] [address] Results Social History Tobacco Use Types Packs/Day [...] on filedocumented in this encounter Care Teams Cat Hooker Relationship Specialty Start Date End Date Terrie Humphries MD [address] [place] [address] PCP - General Family Medicine 02/17/20 documented as of this encounter
--- OUTSIDE RECORDS SUMMARY | 2025-04-13 16:32 | XMS_ITS | Encounter Summary ---
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 Phone Terrie Humphries MD Primary Care Provider [phone] Reason for Referral * Imaging (Routine) - Authorized Specialty Diagnoses / Procedures Referred By Tania t Referred To Contact Radiology Diagnoses Multiple benign lumps of breast Procedures BI US Breast Limited Left Terrie Humphries MD [address] [place] [address] Phone: tel: fax: [address] Phone: tel: fax: Referral ID Status Reason Start Date Expiration Date V isits Requested Visits Authorized [id number] Authorized 03/13/2025 03/13/2026 1 1 * Imaging (Routine) - Authorized Specialty Diagnoses / Procedures Referred By Contac t Referred To Contact Radiology Diagnoses Multiple benign lumps of breast Procedures BI US Breast Limited Right Terrie Humphries MD [address] [place] [address] Phone: tel: fax: [address] Phone: tel: fax: Referral ID Status Reason Start Date Expiration Date V isits Requested Visits Authorized [id number] Authorized 03/13/2025 03/13/2026 1 1 * Imaging (Routine) - Authorized Specialty Diagnoses / Procedures Referred By Tania t Referred To Contact Radiology Diagnoses Multiple benign lumps of breast Procedures BI Mammogram Diagnostic Tomosynthesis Bilateral Terrie Humphries MD [address] [place] [address] Phone: tel: fax: [address] Phone: tel: fax: Referral ID Status Reason Start Date Expiration Date V isits Requested Visits Authorized [id number] Authorized 03/13/2025 03/13/2026 1 1 Encounter Details Date Type Department Care Team (Late st Contact Info) Description 03/05/2025 Orders Only [facility] [address] [place] [address] Terrie Humphries MD [address] [place] [address] Benign breast lumps (Primary Dx); Multiple benign lumps of breast Social History Tobacco Use Types Packs/Day Years [...] as of this encounter Plan of Treatment Scheduled Orders Name Type Priority Associated Diagnoses Orde r Schedule BI US Breast Limited Right Imaging Routine Multiple benign lumps of breast Expected: 03/13/2025, Expires: 03/13/2026 BI US Breast Limited Left Imaging Routine Multiple benign lumps of breast Expected: 03/13/2025, Expires: 03/13/2026 documented as of this encounter Procedures Procedure Name Priority Date/Time Associated Diagnosis Comments BI MAMMOGRAM DIAGNOSTIC TOMOSYNTHESIS BILATERAL Routine 04/13/2025 1:30 PM EDT Multiple benign lumps of breast documented in this encounter Results * BI Mammogram Diagnostic Tomosynthesis Bilateral (04/13/2025 1:30 PM EDT) Anatomical Region Laterality Modality Breast Bilateral Mammography 04/13/2025 1:30 PM EDT Narrative 04/13/2025 3:13 PM EDT [facility] [address] [place] [address] Mammography Report Signed Patient: Leeann Kaiser MR#: [id number] 21 : 1975 Acct:[id number] Age/Sex: 49 / F ADM Date: 04/13/25 Loc: HO.MAMMO Attending Dr: Terrie Humphries MD Ordering Physician: Terrie Humphries MD Results: 2Benign Date of Service: 04/13/25 Follow Up: 1 Year From [facility] Mammogram Procedure(s): MM tomosynthesis diagnostic BI Accession Number(s): [id number] cc: Terrie Humphries MD Reason For Exam: [...] 04/13/25 1510 DD/ 1330 TD/TT: 04/13/25 1346 Clinical Pharmacy Technician: Procedure Note Donotuseinterpreter, Image - 04/13/2025 [facility] [address] [place] [address] [address] [place], [place] [address] Mammography Report Signed Patient: Leeann Kaiser LMR#: [id number] 21 : 1975Acct:[id number] Age/Sex: 49 / FADM Date: 04/13/25 Loc: MAMMO Attending Dr: Terrie Humphries MD Ordering Physician: Terrie Humphries MDResults: 2Benign Date of Service: 04/13/25Follow Up: 1 Year From Orig inal Mammogram Procedure(s): MM tomosynthesis diagnostic BI Accession Number(s): [id number] cc: Terrie Humphries MD Reason For Exam: [...] Donnie White MD 04/13/2025 03:10 PM EDT RP Workstation: [id number] Dictated By: Donnie White MD Signed By: <Electronically signed by Donnie White MD in OV> 04/13/25 1510 DD/ 1330 TD/TT: 04/13/25 1346 Clinical Pharmacy Technician: Terrie Humphries MD IMG BI PROCEDURES Edited Result - Final documented in this encounter Visit Diagnoses Diagnosis Benign breast lumps- Primary Fibroadenosis of breast Multiple benign lumps of breast documented in this encounter Additional Health Concerns Assessment Noted Time PHQ-9 Depression Total Score: 5 11/21/19 25 1:19 PM EDT documented as of this encounter Care Teams Laborer Shipyard Relationship Specialty Start Date End Date Terrie Humphries MD [address] [place] [id number] PCP - General Family Medicine 02/17/20 documented as of this encounter
--- OUTSIDE RECORDS SUMMARY | 2025-04-13 16:32 | XMS_ITS | Clinical Summary ---
Author Organization [facility] ity Address [address] [place] [address] Care Team Providers Care Dining Room Helper Name Role Phone Unavailable Primary Care Provider Unavailabl e Social History Tobacco Use Types Packs/Day Years Used Date Smoking Tobacco: Never Assessed Comments Unknown Sex and Gender Information Value Date Recorded Sex Assigned at Not on file Legal Sex Female 9:57 PM EST Gender Identity Not on file Sexual Orientation Not on file Plan of Treatment Health Maintenance Due Date Last Done Comments Breast Cancer Screening 1975 Colorectal Cancer Screening: Colonoscopy 1975 DTaP,Tdap,and Td Vaccines (1 - Tdap) 1996 Hepatitis B Vaccines (1 of 3 - 19+ 3-dose series) 1996 Cervical Cancer Screening: P ap Smear 1998 HIV Screening 07/24/2023 Hepatitis C Screening 07/24/2023 Social Influencers of Health Screening 07/24/2023 Depression Screening 2024 COVID-19 Vaccine ( - 2023-2 5 season) 2025 Influenza Vaccine (#1) 2025 RSV Immunization Adult Patie nts (1 - 1-dose 75+ series) 2052 HIB Vaccines Aged Out No longer eligi ble based on patient's age to complete this topic HPV Vaccines Aged Out No longer eligi ble based on patient's age to complete this topic Hepatitis A Vaccines Aged Out No long er eligible based on patient's age to complete this topic IPV Vaccines Aged Out No longer eligi ble based on patient's age to complete this topic MMR Vaccines Aged Out No longer eligi ble based on patient's age to complete this topic Meningococcal ACWY Vaccine Aged Out N o longer eligible based on patient's age to complete this topic Meningococcal B Vaccine Aged Out No l onger eligible based on patient's age to complete this topic Pneumococcal Vaccine: Pediat rics (0 to 5 Years) and At-Risk Patients (6 to 49 Years) Aged Out No longer eligible b ased on patient's age to complete this topic RSV Immunization Patients Un sumit 20 months Aged Out No longer eligible b ased on patient's age to complete this topic Varicella Vaccines Aged Out No longer eligible based on patient's age to complete this topic Advance Directives Documents on File Type Date Recorded Patient Computer Analyst Expl anation Health Care Decision (hx) 02/15/2023 AD BJ DIRECTIVE
== END 2025-04-13 13:26 | disposition home or self-care (01) ==
LOC: HO.MAMMO 13:25
PROVIDERS: PCP Student in an Organized Health Care Education/Training Program; Visit Provider Student in an Organized Health Care Education/Training Program
DX: N63.15 Unspecified lump in the right breast, overlapping quadrants (principal)
CPT/HCPCS: 76642; 77062; 77066

== ENCOUNTER → 2025-04-13 13:30 | Outpatient (BNV) | payer OTHER, SELFPAY | PROVIDERS: PCP Student in an Organized Health Care Education/Training Program; Visit Provider Radiology Body Imaging | DX: R92.8 Other abnormal and inconclusive findings on diagnostic imaging of breast (principal) | CPT/HCPCS: 76642; 77066; G0279 ==

== ENCOUNTER 2025-04-20 12:35 | Outpatient (AMB) | payer OTHER, SELFPAY ==
--- NOTE | 2025-04-20 13:22 | MHC.OFFVIS ---
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: No Accompanied by: Self / Same As Patient Allergies naproxen (From Naprosyn) Allergy (Unknown, Verified 04/20/25 13:30) SWELLING ALL OVER Medication List - Last Reconciled 04/21/25 by NERI StatonC albuterol sulfate 90 mcg/actuation (Ventolin HFA) 2 puffs inhalation Q6H PRN bisacodyl (Dulcolax (bisacodyl)) 20 mg (4 x 5 mg) PO ONCE 1 day clonidine 1 patch transdermal QWEEK fluticasone propion-salmeterol 115-21 mcg/actuation (Advair HFA) 2 puffs inhalation BID fluvoxamine 100 mg PO BID methadone 120 mg PO DAILY omeprazole 20 mg PO DAILY polyethylene glycol 3350 (Miralax) 238 grams PO ONCE quetiapine 300 mg PO DAILY HPI HPI 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 She was referred by her PCP for cardiac evaluation. Today she presents for cardiology consult. She tells me she has been getting some random discomfort in the left chest that will radiate into her left arm at times. She also gets a muscle cramp in her left shoulder blade area that causes discomfort into the left arm as well. Her symptoms occur at rest and during activity but not clearly brought on by exertion. She tells me she did have 2 EKGs recently in the setting of her chest discomfort and told they were normal. She has never had any cardiac diagnoses. She does have some shortness of breath with stair climbing but does no routine exercise. She has mild asthma which she says bothers her at times. She continues to smoke 3/4 of a pack of cigarettes per day and has smoked for the last 30 years. She drinks alcohol routinely, 4 tall beers daily, and uses cocaine occasionally. Her chest discomfort is not associated with the timing of cocaine use. She will feel occasional heart palpitations, nothing that causes her concern. No presyncope, syncope, falling. She reports her dad had history of DE in his 60s. No other family history of heart disease. She denies personal diagnosis of hypertension, hyperlipidemia, diabetes. [facility] Medical History Alcohol dependence Acid reflux Change in stool Colon cancer screening Hepatitis C Surgical History History of surgical amputation of finger of right hand Family History Father Heart attack Social History Household Members: Family Alcohol intake: current Alcohol intake frequency: 3 or more drinks per day Alcohol type: beer Patient Tobacco Use Status: Current everyday Tobacco user Tobacco use type: Cigarette Substance Use Type: Crack/Cocaine Review of Systems Const All systems reviewed & are unremarkable except as noted in HPI and below Denies chills, Denies daytime sleepiness, Denies fatigue, Denies fever(s), Denies poor appetite, Denies snoring, Denies stops breathing during sleep, Denies weight gain and Denies weight loss Eyes Denies loss of vision Card Denies chest pain, Denies claudication, Denies leg edema, Denies lightheadedness, Denies palpitations, Reports dyspnea, Denies dyspnea on exertion and Denies orthopnea Resp Denies cough, Denies excessive phlegm production, Denies pain with cough, Reports dyspnea, Denies dyspnea on exertion, Denies snoring, Denies wheezing and Denies other GI Denies abdominal pain, Denies hematochezia, Denies change in bowel habits, Denies nausea and Denies vomiting Denies urinary frequency and Denies dysuria Musc Denies arthralgias and Denies muscle weakness Skin/Breast Denies nail changes and Denies rash Neuro Denies loss of vision and Denies memory loss Psych Denies depression, Reports difficulty concentrating, Denies auditory hallucinations and Denies memory loss Endo Denies fatigue and Denies palpitations Thong/Lymph Denies easy bruising Aller/Immun Denies wheezing Physical Exam Vital Signs: Last Vital Signs Pulse 62 04/20/25 13:25 BP 110/54 L 04/20/25 13:25 BMI result Body Mass Index 31.0 Const General: cooperative, healthy appearing, comfortable and no acute distress Orientation/consciousness: patient oriented x3 Neck Neck: Yes normal visual inspection Resp Effort & Inspection: normal respiratory effort Auscultation: clear to auscultation bilaterally, no crackles, no rales, no rhonchi and no wheezes Cardio Rate: regular rate Rhythm: regular rhythm Heart sounds: S1 normal heart sound present, S2 normal heart sound present, no gallops, no murmurs and no rubs Neuro General: patient oriented x3 Extrem General: Yes normal to inspection and No no pedal edema Psych Appearance: grossly normal Mental Status: mental status grossly normal Speech and movement: Normal speech and movement present Office Procedures EKG Details: Today, read by me, normal sinus rhythm, rate 62, QTC 452 milliseconds [id number], Complete Assessment & Plan Assessment & Plan (1) Chest discomfort: Code(s): R07.89 - Other chest pain Category: Medical Plan: Atypical sounding chest discomfort in patient with cardiac risk factors of mild obesity, smoking and cocaine use. EKG today showing normal sinus rhythm, no acute ST or T-wave abnormalities, rate 62. Will check exercise stress test to assess for any ischemia. Will check echocardiogram to assess for structural heart disease. Stressed cocaine cessation and smoking cessation. Physical activity as tolerated. Cardiology follow-up 6 weeks, sooner if needed. (2) Smoking: Code(s): F17.200 - Nicotine dependence, unspecified, uncomplicated Category: Social Hx Plan: 22.5 pack-year history of smoking and history of asthma. Strongly stressed the need for smoking cessation. (3) Asthma: Code(s): J45.909 - Unspecified asthma, uncomplicated Category: Medical Plan: As above. Plan Time spent on chart review, documentation, interview and assessment Orders: Orders CA stress test Today F17.200 - Nicotine dependence, unspecified, uncomplicated, R07.89 - Other chest pain CA echo transthoracic complete Today F17.200 - Nicotine dependence, unspecified, uncomplicated, J45.909 - Unspecified asthma, uncomplicated, R07.89 - Other chest pain Coding Level of Care Code New Pt Level 4 (94585) Complex EM visit Add On G2211 Diagnoses Chest discomfort R07.89 Smoking F17.200 Asthma J45.909 CPT Codes EKG - CPT: 37172-[id number], Complete ([id number]) Time Spent (min) 28
[2025-04-20 13:25] VITALS: BP 110/54; PULSE 62; BMI 31.0
--- OUTSIDE RECORDS SUMMARY | 2025-04-20 15:59 | XMS_ITS | Clinical Summary ---
Author Organization [email or web address] Address [address] [facility] [address] [place] [address] Care Team Providers Care Splitter Tender Name Role Phone Terrie Humphries MD Primary Care Provider [phone] Allergies Active Allergy Reactions Criticality Noted Date [...] Department Care Team Description 04/13/2025 Orders Only [facility] [address] [place], [place] [phone] Terrie Humphries MD 04/06/2025 Refill [facility] [address] [place] [address] Terrie Humphries MD 04/05/2025 Refill [facility] [address] [place] [address] Terrie Humphries MD Depression, unspecified depression type 04/04/2025 Refill [facility] [address] [place] [address] Terrie Humphries MD 03/05/2025 Orders Only [facility] [address] [place] [address] Terrie Humphries MD Benign breast lumps (Primary Dx); Multiple benign lumps of breast 02/22/2025 Refill [facility] [address] [place] [address] Terrie Humphries MD 02/19/2025 Orders Only [facility] [address] [place] [address] Terrie Humphries MD Multiple benign lumps of breast (Primary Dx) 02/17/2025 Telephone [facility] [address] [place] [address] Terrie Humphries MD mammo order 02/09/2025 Telephone [facility] [address] [place] [address] Terrie Humphries MD 02/05/2025 Telephone [facility] [address] [place] [address] Liz Cat RN 02/05/2025 Orders Only [facility] [address] [place] [phone] Liz Cat, RN Hep C w/o coma, chronic (CMS/HCC) (Primary Dx) 02/05/2025 Telephone [facility] [address] [place] [address] Terrie Humphries MD Appointment Request 01/23/2025 1:20 PM EDT Office Visit [facility] [address] [place] [address] Karen Segura MD Other chest pain (Primary Dx); Epidermoid cyst 01/23/2025 Travel 01/22/2025 Telephone [facility] [address] [place] [address] Terrie Humphries MD Nurse Triage 01/20/2025 Telephone [facility] [address] [place], [place] [phone] Terrie Humphries MD Nurse Triage from Last 3 Months Immunizations Immunization Administration [...] 1998 Cervical Cancer Screening 2007 HPV/Cotest 2007 Pneumococcal Vaccine: Pediatrics (0 to 5 Years) and At-Risk Patients (6 to 49) Years (2 of 2 - PCV) 04/10/2018 04/10/2017 COVID-19 Vaccine (2023-2 5 season) 2025 Influenza Vaccine (#1) 2025 03/20/2016 Depression Screening 11/20/2025 11/20/2024, 11/20/2024 Disability Screening 11/20/2025 11/20/2024 SDOH Screening 11/20/2025 11/20/2024 Tobacco Screening 11/20/2025 11/20/2024 Mammogram 04/13/2027 04/13/2025, 04/13/2025 Zoster Vaccines (1 of 2) 2027 Lipid [...] PM EDT Narrative 04/13/2025 3:13 PM EDT [address] [place] [address] Ultrasound Report Signed Patient: Leeann Kaiser MR#: [id number] 21 : 1975 Acct:[id number] Age/Sex: 49 / F ADM Date: 04/13/25 Loc: HO.MAMMO Attending Dr: Terrie Humphries MD Ordering Physician: Terrie Humphries MD Date of Service: 04/13/25 Procedure(s): US Breast BI Limited Mamm Only Accession Number(s): [id number] cc: Terrie Humphries MD Reason for Exam: [...] 04/13/25 1510 DD/ 1401 TD/TT: 04/13/25 1417 Leisure Travel Agent: Procedure Note Donotuseinterpreter, Image - 04/13/20[facility] [address] [place] [address] Ultrasound Report Signed Patient: Leeann Kaiser LMR#: [id number] 21 : 1975Acct:[id number] Age/Sex: 49 / FADM Date: 04/13/25 Loc: HO.MAMMO Attending Dr: Terrie Humphries MD Ordering Physician: Terrie Humphries MD Date of Service: 04/13/25 Procedure(s): US Breast BI Limited Mamm Only Accession Number(s): [id number] cc: Terrie Humphries MD Reason for Exam: [...] Donnie White MD 04/13/2025 03:10 PM EDT Workstation: [employer] Dictated By: Donnie White MD Signed By: <Electronically signed by Donnie White MD in OV> 04/13/25 1510 DD/ 1401 TD/TT: 04/13/25 1417 Leisure Travel Agent: us Terrie Humphries MD IM US PROCEDURES Edited Result - Final * BI Mammogram Diagnostic Tomosynthesis Bilateral (04/13/2025 1:30 PM EDT) Anatomical Region Laterality Modality Breast Bilateral Mammography 04/13/2025 1:30 PM EDT Narrative 04/13/2025 3:13 PM EDT [facility] [address] [place] [address] Mammography Report Signed Patient: Leeann Kaiser MR#: [id number] [birth year] : 1975 Acct:[id number] Age/Sex: 49 / F ADM Date: 04/13/25 Loc: HO.MAMMO Attending Dr: Terrie Humphries MD Ordering Physician: Terrie Humphries MD Results: 2Benign Date of Service: 04/13/25 Follow Up: 1 Year From [facility] Mammogram Procedure(s): MM tomosynthesis diagnostic BI Accession Number(s): [id number] cc: Terrie Humphries MD Reason For Exam: [...] White MD 04/13/2025 03:10 PM EDT RP Dictated By: Donnie White MD Signed By: <Electronically signed by Donnie White MD in OV> 04/13/25 1510 DD/ 1330 TD/TT: 04/13/25 1346 Leisure Travel Agent: Procedure Note Donotuseinterpreter, Image - 04/13/2025 [facility] [address] [place] [address] Mammography Report Signed Patient: Leeann Kaiser LMR#: [id number] 21 : 1975Acct:[id number] Age/Sex: 49 / FADM Date: 04/13/25 Loc: HO.MAMMO Attending Dr: Terrie Humphries MD Ordering Physician: Terrie Humphries MDResults: 2Benign Date of Service: 04/13/25Follow Up: 1 Year From [facility] Mammogram Procedure(s): MM tomosynthesis diagnostic BI Accession Number(s): [id number] cc: Terrie Humphries MD Reason For Exam: [...] 04/13/25 1510 DD/ 1330 TD/TT: 04/13/25 1346 Leisure Travel Agent: us Terrie Humphries MD IMG BI PROCEDURES Edited Result - Final * ECG 12 lead (01/23/2025 2:13 PM EDT) Narrative Karen Segura MD - 01/23/2025 2:13 PM EDT Heart rate 75 bpm. Sunset 60 degrees. No Q waves. No sign of left atrial enlargement or right atrial enlargement. No ST elevation or ST depression. Normal EKG. us Karen Segura MD ECG ORDERABLES Final Resul t * (ABNORMAL) Lipid Panel, Standard (11/20/2024 11:45 AM EDT) Triglycerides 81 <150 mg/dL [facility] Comment:Desirable Triglyceri de: less than 150 mg/dLBorderline High Triglyceride 150-199 mg/dLHigh Triglyceride: 200-499 mg/dLVery High Triglyceride: greater than or equal to 5OO mg/dL Cholesterol 201(H) <200 mg/dL [facility] Comment:Desirable Cholestero l: less than 200 mg/dLBorderline High Cholesterol: 200-239 mg/dLHigh Cholesterol: greater than 239 mg/dL LDL Cholesterol Calculated 91 <100 mg/dL [facility] Comment:Desirable LDL: less than 100 mg/dLNear Optimal/Above Optimal LDL: 110- 129 mg/dLBorderline High LDL: 130-159 mg/dLHigh LDL: 160-189 mg/dLVery High LDL: greater than or equal to 190 mg/dL HDL Cholesterol 94 >40 mg/dL [facility] Comment:Desirable HDL: great er than 40 mg/dL Note: This HDL assay may give artificially low results in patients with liver disease. Blood Venous blood specimen / Unknown 11/20/2024 11:45 AM EDT 11/20/2024 2:14 PM EDT us Terrie Humphries MD LAB BLOOD ORDERABLES Final Resul t Performing Organization Address City/[facility]/ZIP Co de Phone Number [facility] [address] [place] [address] [phone] * HIV-1/2 Antigen and Antibodies, Fourth Generation, with Reflexes (05/19/2024 2:42 PM EST) HIV AB/AG Nonreactive Nonreactive [facility] Comment:HIV-1 p24 Ag and/or HIV-1/HIV-2 Ab not detected.A test result that is nonreactive does not exclude thepossibility of exposure to or infection with HIV-1 and/orHIV-2. Nonreactive results in this assay for individualswith prior exposure to HIV-1 and/or HIV-2 may be due toantigen and antibody levels that are below the limit ofdetection of this assay.The [employer] HIV Ag/Ab Combo assay result andsupplemental assay results should be interpreted inconjunction with the patient's clinical presentation,history and other laboratory results. If the results areinconsistent with clinical evidence, additional testing issuggested to confirm the result. 05/19/2024 2:42 PM EST 05/19/2024 6:27 PM EST us Terrie Humphries MD LAB BLOOD ORDERABLES Final Resul t Performing Organization Address City/[facility]/ZIP Co de Phone Number [facility] [address] [place] [phone] from Last 3 Months or Most Recently Relevant to Health Maintenance Insurance [employer] < [address] [place] [address] [address] [place] [address] [place] [id number] Care Teams Splitter Tender Relationship Specialty Start Date End Date Terrie Humphries MD [address] [place] [phone] PCP - General Family Medicine 02/17/20
--- OUTSIDE RECORDS SUMMARY | 2025-04-20 15:59 | XMS_ITS | Encounter Summary ---
Author Organization [employer] Address [address] [place] [address] 7 [place] [address] Care Team Providers Care Inspector Aide Name Role Phone Terrie Humphries MD Primary Care Provider [phone] Reason for Visit * Reason Onset Date Comments [facility]NA orders 06/01/2023 Encounter Details Date Type Department Care Team ([facility] Contact Info) Description 06/01/2023 Telephone [facility] [address] [place] [address] Terrie Humphries MD [address] [place] [address] VNA orders Social History Tobacco Use Types [...] to [facility]NA orders. Please contact Michelle at [phone] documented in this encounter Plan of Treatment Not on file documented as of this encounter Visit Diagnoses Not on filedocumented in this encounter Care Teams Inspector Aide Relationship Specialty Start Date End Date Terrie Humphries MD [address] [place] [address] PCP - General Family Medicine 02/17/20 documented as of this encounter
--- OUTSIDE RECORDS SUMMARY | 2025-04-20 15:59 | XMS_ITS | Encounter Summary ---
Author Organization [employer] Address [address] [place] [address] 7t [place] [address] Care Team Providers Care Performance Management Consultant Name Role Phone Terrie Humphries MD Primary Care Provider [phone] Encounter Details Date Type Department Care Team ([facility] st Contact Info) Description 03/12/2023 Orders Only [facility] [address] [place] [address] Terrie Humphries MD [address] [place] [address] [phone] Social History Tobacco Use Types Packs/Day Years [...] 2:54 PM EDT) Liver Fibrosis Score 0.04 [facility] Liver Fibrosis Stage F0 [facility] Liver Fibrosis Interpretation SEE NOTE [facility] Comment:no fibrosisFibro Fátima t [...] (severe fibrosis) Nec Inflam Act Score 0.62 [facility] Nec Inflam Act Grade A3 [facility] Nec Inflam Act Interpretation SEE NOTE [facility] Comment:severe activityActiT est Score (a) Metavir Score a>=0 and a<=0.17 : A0 (no activity)a>0.17 and a<=0.29 : A0-A1 (no activity)a>0.29 and a<=0.36 : A1 (minimal activity)a>0.36 and a<=0.52 : A1-A2 (minimal activity)a>0.52 and a<=0.60 : A2 (significant activity)a>0.60 and a<=0.62 : A2-A3 (significant activity)a>0.62 and a<=1.00 : A3 (severe activity) PRT-Mmfbi-6-Macroglo bulin 130 106 - 279 mg/dL [facility] FIB-Haptoglobin 132 43 - 212 mg/dL [facility] FIB-Apolipoprotein A1 250(A) 101 - 198 mg/dL [facility] FIB-Total Bilirubin 0.3 0.2 - 1.2 mg/dL [facility] FIB-GGT 243(A) 3 - 55 U/L [facility] FIB-ALT 145(A) 6 - 29 U/L [facility] Reference ID [id number] [facility] Footnote SEE NOTE [facility] Comment: The reliability of [...] and C.The performance characteristics have been determined by[employer] [facility]. Ithas not been cleared or approved by the U.S. Food and DrugAdministration. Performance characteristics refer to theanalytical performance of the test.[employer], the associated logo, [employer] and all associated [employer] are theregistered trademarks of [employer]. All third partymarks - (R) and (TM) - are the property of their respectiveowners. (C) [id number] [employer]. Allrights reserved.THIS TEST WAS PERFORMED AT:[employer] [id number] [place] [id number] MALDONADO MD,PHD,RC 11/28/2023 2:54 PM EDT 11/28/2023 2:54 PM EDT us Generic External Data Provider LAB BLOOD ORDERAB LES Final Result [facility] [address] [place] [address] [phone] * (ABNORMAL) Hepatitis C Viral RNA, Quantitative, Real-Time PCR (11/28/2023 2:54 PM EDT) Hepatitis C Viral Load 2168674(A ) NOT DETECTED IU/mL [facility] HCV Log PCR 6.42(A) NOT DETECTED Log IU/mL [facility] Comment:For additional infor mation on this test, go to:http://education.[employer]/faq/GIW51c4(This link is being provided for informational/educational purposes only.)THIS TEST WAS PERFORMED AT:[employer] [address] [id number] CARTER MD 11/28/2023 2:54 PM EDT 11/28/2023 2:54 PM EDT us Generic External Data Provider LAB BLOOD ORDERAB LES Final Result Performing Organization Address City/[facility]/ZIP Co de Phone Number [facility] [address] [place] [phone] * Hepatitis B surface antigen, EIA (11/28/2023 2:54 PM EDT) Hepatitis B Surface Ag Negative Negative [facility] 11/28/2023 2:54 PM EDT 11/28/2023 2:54 PM EDT Generic External Data Provider LAB BLOOD ORDERAB LES Final Result Performing Organization Address [facility] Co de Phone Number [facility] [address] [place] [phone] * HIV-1/2 Antigen and Antibodies, Fourth Generation, with Reflexes (11/28/2023 2:54 PM EDT) HIV AB/AG Nonreactive Nonreactive [facility] Comment:HIV-1 p24 Ag and/or HIV-1/HIV-2 Ab not detected.A test result that is nonreactive does not exclude thepossibility of exposure to or infection with HIV-1 and/orHIV-2. Nonreactive results in this assay for individualswith prior exposure to HIV-1 and/or HIV-2 may be due toantigen and antibody levels that are below the limit ofdetection of this assay.[email or web address] HIV Ag/Ab Combo assay result andsupplemental assay results should be interpreted inconjunction with the patient's clinical presentation,history and other laboratory results. If the results areinconsistent with clinical evidence, additional testing issuggested to confirm the result. 11/28/2023 2:54 PM EDT 11/28/2023 2:54 PM EDT us Generic External Data Provider LAB BLOOD ORDERAB LES Final Result Performing Organization Address [facility]/ZIP Co de Phone Number [facility] [address] [place] [address] [phone] * (ABNORMAL) Hepatitis C Ab (11/28/2023 2:54 PM EDT) Hepatitis C Antibody Reactive( A) Nonreactive [facility] Comment:Presumptive evidence of antibodies to HCV. 11/28/2023 2:54 PM EDT 11/28/2023 2:54 PM EDT us Generic External Data Provider LAB BLOOD ORDERAB LES Final Result Performing Organization Address [facility] Co de Phone Number [facility] [address] [place] [phone] * Hepatitis B Core Antibody, Total (11/28/2023 2:54 PM EDT) Pathologist [facility] [place] Hepatitis B Core Antibody Nonreactive Nonreactive [facility] 11/28/2023 2:54 PM EDT 11/28/2023 2:54 PM EDT us Generic External Data Provider LAB BLOOD ORDERAB LES Final Result Performing Organization Address [facility] Co de Phone Number [facility] [address] [place] [phone] * Hepatitis B Surface Antibody, Qualitative (11/28/2023 2:54 PM EDT) ~Hepatitis B Surface Antibody REACTIVE Nonreactive [facility] Comment:REACTIVE: > 11.99 mI U/mL 11/28/2023 2:54 PM EDT 11/28/2023 2:54 PM EDT us Generic External Data Provider LAB BLOOD ORDERAB LES Final Result Performing Organization Address [facility]/ZIP Co de Phone Number [facility] [address] [place] [address] [phone] * Hepatitis A Antibody, Total (11/28/2023 2:54 PM EDT) Hepatitis A Antibody IgG Nonreactive Nonreactive [facility] 11/28/2023 2:54 PM EDT 11/28/2023 2:54 PM EDT Generic External Data Provider LAB BLOOD ORDERAB LES Final Result Performing Organization Address [facility] Co de Phone Number [facility] [address] [place] [address] [phone] * (ABNORMAL) Basic Metabolic Panel (11/28/2023 2:54 PM EDT) Pathologist [facility] [place] Sodium 138 135 - 145 mmol/L [facility] Potassium 4.1 3.3 - 5.1 mmol/L [facility] Chloride 103 96 - 108 mmol/L [facility] Carbon Dioxide 26 22 - 29 mmol/L [facility] Anion Gap 13 12 - 20 [facility] Urea Nitrogen (BUN) 7(L) 9 - 16 mg/dL [facility] Creatinine, Serum 0.65 0.5 - 1.4 mg/dL [facility] Estimated Glomerular Filt Rate >60 [facility] Comment:NOTE: For -Am erican individuals, multiply the result by 1.210.Chronic Kidney Disease: Estimated GFR < 60 mL/min/1.83l1Jdbfwt Kidney Disease: Estimated GFR < 15 mL/min/1.73m2 Glucose 66 60 - 115 mg/dL [facility] Calcium 9.1 8.4 - 10.2 mg/dL [facility] 11/28/2023 2:54 PM EDT 11/28/2023 2:54 PM EDT us Generic External Data Provider LAB BLOOD ORDERAB LES Final Result Performing Organization Address [facility]/ZIP Co de Phone Number [facility] [address] [place] [address] [phone] * (ABNORMAL) Hepatic Function Panel (11/28/2023 2:54 PM EDT) Bilirubin, Total 0.4 0.0 - 1.0 mg/dL [facility] Bilirubin, Direct 0.2 0.0 - 0.5 mg/dL [facility] Aspartate Amino Transferase 206(H) 5 - 31 U/L [facility] Alanine Aminotransferase 183(H) 0 - 31 U/L [facility] Total Protein 7.4 6.5 - 8.0 g/dL [facility] Albumin Level 4.4 3.5 - 5.0 g/dL [facility] Alkaline Phosphatase 82 39 - 117 U/L [facility] 11/28/2023 2:54 PM EDT 11/28/2023 2:54 PM EDT us Generic External Data Provider LAB BLOOD ORDERAB LES Final Result Performing Organization Address City/State/[facility] Co de Phone Number [facility] [address] [place] [phone] * Prothrombin Time-INR (11/28/2023 2:54 PM EDT) Prothrombin Time 11.1 11.1 - 13.3 SEC [facility] INTERNATIONAL NORM RATIO 0.9 0.9 - 1.1 [facility] Comment:INTERNATIONAL NORMAL IZED RATIO [...] Provider LAB BLOOD ORDERAB LES Final Result [facility] [address] [place], [place] [phone] * (ABNORMAL) CBC auto differential (11/28/2023 2:54 PM EDT) White Blood Count 5.5 4.8 - 10.8 X10*3/uL [facility] Red Blood Count 3.98(L) 4.20 - 5.50 X10*6/uL [facility] Hemoglobin 13.6 12.0 - 16.0 g/dl [facility] Hematocrit 41.1 37.0 - 47.0 % [facility] Mean Corpuscular Volume 103.3(H) 80.0 - 98.0 fL [facility] Mean Corpuscular Hemoglobin 34.2(H) 27.0 - 33.0 pg [facility] Mean Corpuscular HGB Conc 33.1 31.0 - 35.0 g/dl [facility] Red Cell Distribution Width 13.6 11.0 - 16.0 % [facility] Platelet Count 140(L) 160 - 400 X10*3/uL [facility] Mean Platelet Volume 10.7 9.4 - 12.3 fL [facility] Neutrophils Percent Auto 47.2 45 - 73 % [facility] Imm Gran Pct Auto 0.5(H) 0.0 - 0.4 % [facility] Lymphocytes Percent Auto 33.5 20 - 40 % [facility] Monocytes Percent Auto 10.6 2 - 11 % [facility] Eosinophils Percent Auto 7.1(H) 0 - 4 % [facility] Basophils Percent Auto 1.1 0 - 2 % [facility] NRBC Pct Auto 0.0 0.0 - 0.2 /100WBC [facility] Neutrophils Absolute Auto 2.6 2.0 - 8.3 x10*3/uL [facility] Imm Gran Abs Auto 0.03 0.00 - 0.03 X10*3/uL [facility] Lymphocytes Absolute Auto 1.8 1.2 - 4.9 X10*3/uL [facility] Monocytes Absolute Auto 0.6 0.1 - 1.2 X10*3/uL [facility] Eosinophils Absolute Auto 0.4 0.0 - 0.4 X10*3/uL [facility] Basophils Absolute Auto 0.1 0.0 - 0.2 X10*3/uL [facility] NRBC Abs Auto 0.000 0.0 - 0.012 X10*3/uL [facility] 11/28/2023 2:54 PM EDT 11/28/2023 2:54 PM EDT us Generic External Data Provider LAB BLOOD ORDERAB LES Final Result Performing Organization Address City/State/[facility] Co de Phone Number [facility] [address] [place] [phone] documented in this encounter Visit Diagnoses Not on filedocumented in this encounter Care Teams Performance Management Consultant Relationship Specialty Start Date End Date Terrie Humphries MD [address] [place] [phone] PCP - General Family Medicine 02/17/20 documented as of this encounter
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
--- OUTSIDE RECORDS SUMMARY | 2025-04-20 15:59 | XMS_ITS | Encounter Summary ---
Author Organization [employer] Address [address] [facility] 7[address] [place] [address] Care Team Providers Care Copyman Name Role Phone Terrie Humphries MD Primary Care Provider [phone] Reason for Visit * Reason Onset Date Comments Appointment Request 05/08/2023 Encounter Details Date Type Department Care Team ([facility] Contact Info) Description 05/08/2023 Telephone [facility] [address] [place] [address] Terrie Humphries MD [address] [place], [place] [phone] Appointment Request Social History Tobacco Use Types [...] - 05/08/2023 9:41 AM EST Tc from [facility] requesting PE appt for pt, please call [place] [phone]. documented in this encounter Plan of Treatment Not on file documented as of this encounter Visit Diagnoses Not on filedocumented in this encounter Care Teams Copyman Relationship Specialty Start Date End Date Terrie Humphries MD [address] [place] [address] PCP - General Family Medicine 02/17/20 documented as of this encounter
--- OUTSIDE RECORDS SUMMARY | 2025-04-20 15:59 | XMS_ITS | Encounter Summary ---
Author Organization [employer] Address [address] [place] [address] [address] [place] [address] Care Team Providers Care Cat Dog Or Other Pet Groomer Name Role Phone Terrie Humphries MD Primary Care Provider [phone] Encounter Details Date Type Department Care Team ([facility] Contact Info) Description 06/15/2022 Orders Only [facility] MED & PEDS [address] [place], [place] [phone] Terrie Humphries MD [address] [place] [address] Social History Tobacco Use Types Packs/Day Years [...] filedocumented in this encounter Care Teams Cat Dog Or Other Pet Groomer Relationship Specialty Start Date End Date Terrie Humphries MD [address] [place] [address] PCP - General Family Medicine 02/17/20 documented as of this encounter
--- OUTSIDE RECORDS SUMMARY | 2025-04-20 15:59 | XMS_ITS | Encounter Summary ---
Author Organization [employer] Address [address] [place] [address] 7 [place] [address] Care Team Providers Care Printing Grey Cloth Tender Name Role Phone Terrie Humphries MD Primary Care Provider [phone] Reason for Visit * Reason Comments Med Refill Encounter Details Date Type Department Care Team ([facility] Contact Info) Description 07/27/2022 Refill [facility] MED [facility] PEDS [address] [place] [address] Terrie Humphries MD [address] [place] [address] Social History Tobacco Use Types Packs/Day Years [...] on filedocumented in this encounter Care Teams Printing Grey Cloth Tender Relationship Specialty Start Date End Date Terrie Humphries MD [address] [place] [address], [place] [address] PCP - General Family Medicine 02/17/20 documented as of this encounter
--- OUTSIDE RECORDS SUMMARY | 2025-04-20 16:00 | XMS_ITS | Encounter Summary ---
Author Organization [employer] Address [address] [place] [address] [address], [place] [address] Care Team Providers Care Pack Out Operator Name Role Phone Terrie Humphries MD Primary Care Provider [phone] Reason for Referral * Imaging (Routine) - Closed Specialty Diagnoses / Procedures Referred By Tania mitchell Referred To Contact Radiology Diagnoses Multiple benign lumps of breast Procedures BI US Breast Limited Left Terrie Humphries MD [address] [place] [address] Phone: tel: fax: [address] Phone: tel: fax: Referral ID Status Reason Start Date Expiration Date Visits Re quested Visits Authorized [id number] Closed 03/13/2025 03/13/2026 1 1 * Imaging (Routine) - Closed Specialty Diagnoses / Procedures Referred By Contac t Referred To Contact Radiology Diagnoses Multiple benign lumps of breast Procedures BI US Breast Limited Right Terrie Humphries MD [address] [place] [address] Phone: tel: fax: [address] Phone: tel: fax: Referral ID Status Reason Start Date Expiration Date Visits Re quested Visits Authorized [id number] Closed 03/13/2025 03/13/2026 1 1 * Imaging (Routine) - Closed Specialty Diagnoses / Procedures Referred By Tania mitchell Referred To Contact Radiology Diagnoses Multiple benign lumps of breast Procedures BI Mammogram Diagnostic Tomosynthesis Bilateral Terrie Humphries MD [address] [place] [address] Phone: tel: fax: [address] Phone: tel: fax: Referral ID Status Reason Start Date Expiration Date Visits Re quested Visits Authorized [id number] Closed 03/13/2025 03/13/2026 1 1 Encounter Details Date Type Department Care Team (Late st Contact Info) Description 03/05/2025 Orders Only [facility] MED & PEDS [address] [place] [address] Terrie Humphries MD [address] [place] [address] Benign breast lumps (Primary Dx); Multiple benign [...] EDT Narrative 04/13/2025 3:13 PM EDT [facility] [address] [place] [address] Mammography Report Signed Patient: Leeann Kaiser MR#: [id number] 21 : 1975 Acct:[id number] Age/Sex: 49 / F ADM Date: 04/13/25 Loc: HO.MAMMO Attending Dr: Terrie Humphries MD Ordering Physician: Terrie Humphries MD Results: 2Benign Date of Service: 04/13/25 Follow Up: 1 Year From [facility] Mammogram Procedure(s): MM tomosynthesis diagnostic BI Accession Number(s): [id number] cc: Terrie Humphries MD Reason For Exam: [...] 04/13/25 1510 DD/ 1330 TD/TT: 04/13/25 1346 Horticulture/Floriculture Teacher: Procedure Note Donotuseinterpreter, Image - 04/13/2025 [facility] [address] [place] [address] Dr[place], [place] [address] Mammography Report Signed Patient: Leeann Kaiser LMR#: [id number] 21 : 1975Acct:[id number] Age/Sex: 49 / FADM Date: 04/13/25 Loc: MAMMO Attending Dr: Terrie Humphries MD Ordering Physician: Terrie Humphries MDResults: 2Benign Date of Service: 04/13/25Follow Up: 1 Year From Orig inal Mammogram Procedure(s): MM tomosynthesis diagnostic BI Accession Number(s): [id number] cc: Terrie Humphries MD Reason For Exam: [...] MD 04/13/2025 03:10 PM EDT RP Workstation: [id number] Dictated By: Donnie White MD Signed By: <Electronically signed by Donnie White MD in OV> 04/13/25 1510 DD/ 1330 TD/TT: 04/13/25 1346 Horticulture/Floriculture Teacher: Terrie Humphries MD IMG BI PROCEDURES Edited Result - Final documented in this encounter Visit Diagnoses Diagnosis Benign breast lumps- Primary Fibroadenosis of breast Multiple benign lumps of breast documented in this encounter Additional Health Concerns Assessment Noted Time PHQ-9 Depression Total Score: 5 11/21/19 25 1:19 PM EDT documented as of this encounter Care Teams Pack Out Operator Relationship Specialty Start Date End Date Terrie Humphries MD [address] [place] [address] PCP - General Family Medicine 02/17/20 documented as of this encounter
--- OUTSIDE RECORDS SUMMARY | 2025-04-20 16:00 | XMS_ITS | Encounter Summary ---
Author Organization [employer] Address [address] [facility] [address] [place] [address] Care Team Providers Care Plaster Pattern Caster Name Role Phone Terrie Humphries MD Primary Care Provider [phone] Reason for Visit * Reason Onset Date Comments Med Refill 12/24/2023 Encounter Details Date Type Department Care Team ([facility] Contact Info) Description 12/24/2023 Telephone [facility] PED[facility] [address] [place] [address] Terrie Humphries MD [address] [place] [address] Med Refill Social History Tobacco Use Types [...] 0.1 MG tablet To be sent to: [facility]/pharmacy #[id number] - [place] - [address] [place] [address] Any questions, Please contact pt at [phone] documented in this encounter Plan of Treatment Not on file documented as of this encounter Visit Diagnoses Not on filedocumented in this encounter Care Teams Plaster Pattern Caster Relationship Specialty Start Date End Date Terrie Humphries MD [address] [place] [address] PCP - General Family Medicine 02/17/20 documented as of this encounter
--- OUTSIDE RECORDS SUMMARY | 2025-04-20 16:00 | XMS_ITS | Encounter Summary ---
Author Organization [employer] Address [address] [facility] [address] [place] [address] Care Team Providers Care Airdox Fitter Name Role Phone Terrie Humphries MD Primary Care Provider [phone] Reason for Visit * Reason Onset Date Comments Results 05/12/2024 Encounter Details Date Type Department Care Team ([facility] Contact Info) Description 05/12/2024 Telephone [facility] MED & PEDS [address] [place] [address] Terrie Humphries MD [address] [place] [address] Results Social History Tobacco Use Types Packs/Day [...] on filedocumented in this encounter Care Teams Airdox Fitter Relationship Specialty Start Date End Date Terrie Humphries MD [address] [place] [address] PCP - General Family Medicine 02/17/20 documented as of this encounter
--- OUTSIDE RECORDS SUMMARY | 2025-04-20 16:00 | XMS_ITS | Encounter Summary ---
Author Organization [employer] Address [address] [facility] 7 [place] [address] Care Team Providers Care Belt Molder Name Role Phone Terrie Humphries MD Primary Care Provider [phone] Reason for Visit * Reason Onset Date Comments Nurse Triage 09/11/2023 Encounter Details Date Type Department Care Team ([facility] Contact Info) Description 09/11/2023 Telephone [facility] [address] [place] [address] Terrie Humphries MD [address] [place] [address] Nurse Triage Social History Tobacco Use Types [...] accepted this outcome Please contact pt @ [phone] documented in this encounter Plan of Treatment Not on file documented as of this encounter Visit Diagnoses Not on filedocumented in this encounter Care Teams Belt Molder Relationship Specialty Start Date End Date Terrie Humphries MD [address] [place] [id number] PCP - General Family Medicine 02/17/20 documented as of this encounter
--- OUTSIDE RECORDS SUMMARY | 2025-04-20 16:00 | XMS_ITS | Clinical Summary ---
Author Organization [facility] ity Address [address] [place] [address] Care Team Providers Care Talk Show Host Name Role Phone Unavailable Primary Care Provider [...] Documents on File Type Date Recorded Patient Data Processing Control Clerk Expl anation Health Care Decision (hx) 02/15/2023 AD BJ DIRECTIVE
--- OUTSIDE RECORDS SUMMARY | 2025-04-20 16:00 | XMS_ITS | Encounter Summary ---
Author Organization [employer] Address [address] [facility] [address] [place] [address] Care Team Providers Care Central Supply Clerk Name Role Phone Terrie Humphries MD Primary Care Provider [phone] Reason for Visit * Reason Comments Med Refill Encounter Details Date Type Department Care Team ([facility] Contact Info) Description 07/13/2023 Refill C [facility] [address] [place] [address] Erica Logan MD [address] [place] [address] Social History Tobacco Use Types Packs/Day Years [...] on filedocumented in this encounter Care Teams Central Supply Clerk Relationship Specialty Start Date End Date Terrie Humphries MD [address] [place] [id number] PCP - General Family Medicine 02/17/20 documented as of this encounter
--- OUTSIDE RECORDS SUMMARY | 2025-04-20 16:00 | XMS_ITS | Encounter Summary ---
Author Organization [employer] Address [address] [facility] [address]t [place] [address] Care Team Providers Care Olericulture Professor Name Role Phone Terrie Humphries MD Primary Care Provider [phone] Reason for Visit * Reason Comments Med Refill Encounter Details Date Type Department Care Team ([facility] Contact Info) Description 04/06/2025 Refill [facility] MEDICINE [address] [place] [address] Terrie Humphries MD [address] [place] [address] Social History Tobacco Use Types Packs/Day Years [...] documented as of this encounter Care Teams Olericulture Professor Relationship Specialty Start Date End Date Terrie Humphries MD [address] [place] [id number] PCP - General Family Medicine 02/17/20 documented as of this encounter
--- OUTSIDE RECORDS SUMMARY | 2025-04-20 16:00 | XMS_ITS | Encounter Summary ---
Author Organization [employer] Address [address] [facility] [address] [place] [address] Care Team Providers Care Optical Goods Drill Operator Name Role Phone Terrie Humphreis MD Primary Care Provider [phone] Reason for Visit * Reason Onset Date Comments Appointment Request 02/05/2025 Encounter Details Date Type Department Care Team ([facility] Contact Info) Description 02/05/2025 Telephone [facility] MEDICINE [address] [place] [address] Terrie Humphries MD [address] [place], [place] [phone] Appointment Request Social History Tobacco Use Types [...] documented as of this encounter Care Teams Optical Goods Drill Operator Relationship Specialty Start Date End Date Terrie Humphries MD [address] [place] [id number] PCP - General Family Medicine 02/17/20 documented as of this encounter
== END 2025-04-20 13:59 | disposition home or self-care (01) ==
LOC: HO.HCS 12:36
PROVIDERS: PCP Student in an Organized Health Care Education/Training Program; Visit Provider Nurse Practitioner Family
DX: R07.89 Other chest pain (principal); F17.200 Nicotine dependence, unspecified, uncomplicated; J45.909 Unspecified asthma, uncomplicated
CPT/HCPCS: 93010; 99204; G2211

== ENCOUNTER → 2025-04-20 12:35 | Outpatient (BNVA) | payer OTHER, SELFPAY | PROVIDERS: PCP Student in an Organized Health Care Education/Training Program; Visit Provider Nurse Practitioner Family | DX: J45.909 Unspecified asthma, uncomplicated (principal); R07.89 Other chest pain; F17.200 Nicotine dependence, unspecified, uncomplicated; R25.2 Cramp and spasm | CPT/HCPCS: 93005; 99202 ==